=== PATIENT | male | born 1940 | race Caucasian/White ===

== ENCOUNTER 2017-10-12 11:01 | Emergency (ER) | payer MEDICARE ==
[~2017-10-12] VITALS: Ht 182.9 cm; Wt 102.7 kg
[2017-10-12 11:52] LABS: HEMATOCRIT 50.7 % (42.0-52.0); HEMOGLOBIN 17.5 g/dL (13.5-18.0); MEAN CELL VOLUME 90 fl (78-100); MEAN CORPUSCULAR HEMOGLOBIN 31 pg (27-31); MEAN CORPUSCULAR HGB CONC 35 g/dL (33-37); MEAN PLATELET VOLUME 10.4 fl (7.4-10.4); PLATELET COUNT 173 K/mm3 (130-400); RED BLOOD COUNT 5.61 M/mm3 (4.20-5.60); WHITE BLOOD COUNT 14.9 K/mm3 (4.8-10.8)
[2017-10-12 12:13] LABS: LYMPHOCYTE 6 % (20-51); MONOCYTE 1 % (3-10); NEUTROPHILS 93 % (42-75)
[2017-10-12 12:14] LABS: CALCIUM 9.7 mg/dL (8.4-10.2); POTASSIUM 3.7 mmol/L (3.6-5.0); TOTAL BILIRUBIN 1.2 mg/dL (0.2-1.3); TOTAL PROTEIN 7.1 g/dL (6.3-8.2)
[2017-10-12 14:28] LABS: URINE APPEARANCE CLEAR; URINE COLOR YELLOW; URINE GLUCOSE NEGATIVE (NEGATIVE); URINE KETONE 2+ (NEGATIVE); URINE PROTEIN(semi-quant) 1+ mg/dL (NEGATIVE)
[2017-10-12 14:29] LABS: URINE BILIRUBIN NEGATIVE (NEGATIVE); URINE BLOOD 50 ery/uL (NEGATIVE); URINE LEUKOCYTE ESTERASE NEGATIVE (NEGATIVE); URINE NITRATE NEGATIVE (NEGATIVE); URINE UROBILINOGEN NORMAL (NORMAL); URINE WBC 0-1 /hpf (0-3)
[2017-10-12 14:30] LABS: URINE MUCUS PRESENT (NOT PRESENT)
[2017-10-12] MEDS ORDERED: HYDROCHLOROTH12.5 M2 PO (15:14)
[2017-10-12] MEDS ORDERED: LISINOPRIL20 MG PO (15:14)
[2017-10-12] MEDS ORDERED: CALAN120 MG PO (15:15)
[2017-10-12] MEDS ORDERED: ZOFRAN ODT8 M1 PO (17:39)
[2017-10-12 18:22] VITALS: BP 169/77
== END 2017-10-12 18:05 | disposition home or self-care (01) ==
LOC: ED 11:01
PROVIDERS: Physician Assistant
DX: K52.9 Noninfective gastroenteritis and colitis, unspecified (principal); Z88.5 Allergy status to narcotic agent; Z88.0 Allergy status to penicillin; I10 Essential (primary) hypertension; Z86.73 Personal history of transient ischemic attack (TIA), and cerebral infarction without residual deficits
CPT/HCPCS: J2550; J7030; Q9967

== ENCOUNTER 2017-10-15 16:48 | Emergency (ER) | payer MEDICARE ==
[~2017-10-15 16:48] MED LIST: CALAN120 MG PO; HYDROCHLOROTH12.5 M2 PO; LISINOPRIL20 MG PO; ZOFRAN ODT8 M1 PO
[2017-10-15 18:32] LABS: HEMATOCRIT 51.6 % (42.0-52.0); MEAN CELL VOLUME 89 fl (78-100); MEAN CORPUSCULAR HEMOGLOBIN 31 pg (27-31); MEAN CORPUSCULAR HGB CONC 35 g/dL (33-37); MEAN PLATELET VOLUME 10.4 fl (7.4-10.4); PLATELET COUNT 199 K/mm3 (130-400); RED BLOOD COUNT 5.83 M/mm3 (4.20-5.60); RED CELL DISTRIBUTION WIDTH 12.6 % (11.5-14.5)
[2017-10-15 18:58] LABS: ALBUMIN 3.8 g/dL (3.5-5.0); BUN/CREATININE RATIO 25.3 (6.0-26.0); CALCIUM 9.2 mg/dL (8.4-10.2); POTASSIUM 3.4 mmol/L (3.6-5.0); TOTAL BILIRUBIN 1.5 mg/dL (0.2-1.3); TOTAL PROTEIN 6.9 g/dL (6.3-8.2)
[2017-10-15 19:04] LABS: BAND 1 % (0-10); NEUTROPHILS 85 % (42-75)
[2017-10-15 19:05] LABS: LYMPHOCYTE 9 % (20-51); MONOCYTE 5 % (3-10)
[2017-10-15 19:57] VITALS: BP 191/87
[2017-10-15 20:10] LABS: URINE APPEARANCE CLEAR; URINE COLOR DK YELLOW
[2017-10-15 20:11] LABS: URINE BILIRUBIN NEGATIVE (NEGATIVE); URINE BLOOD 50 ery/uL (NEGATIVE); URINE GLUCOSE NEGATIVE (NEGATIVE); URINE KETONE 2+ (NEGATIVE); URINE LEUKOCYTE ESTERASE TRACE (NEGATIVE); URINE NITRATE NEGATIVE (NEGATIVE); URINE PROTEIN(semi-quant) TRACE mg/dL (NEGATIVE); URINE UROBILINOGEN NORMAL (NORMAL)
[2017-10-15 20:19] LABS: URINE WBC 0-1 /hpf (0-3)
[2017-10-15 20:20] LABS: URINE MUCUS PRESENT (NOT PRESENT)
== END 2017-10-15 19:57 | disposition other institution (70) ==
LOC: ED 16:48
PROVIDERS: Family Medicine
DX: K52.9 Noninfective gastroenteritis and colitis, unspecified (principal); E86.9 Volume depletion, unspecified; Z86.73 Personal history of transient ischemic attack (TIA), and cerebral infarction without residual deficits; I10 Essential (primary) hypertension; Z88.5 Allergy status to narcotic agent; Z88.0 Allergy status to penicillin
CPT/HCPCS: J7030

== ENCOUNTER 2017-10-19 15:46 | Inpatient (IN) | payer MEDICARE ==
[~2017-10-19] VITALS: Ht 182.9 cm; Wt 99.5 kg
[~2017-10-19 15:46] MED LIST changes: -CALAN120 MG PO; +CALAN80 M1 PO; +HCTZ 25MG25 MG PO; -HYDROCHLOROTH12.5 M2 PO; -LISINOPRIL20 MG PO; +LISINOPRIL40 MG PO
--- NOTE | 2017-10-21 17:46 | NUR ---
Pt admitted to room 204 for SWB. Arrives via POV from [facility] and taken to room by WC. Speaks without difficulty, short and penitentiary memory recall appear to be intact. Pt denies headache or blurred vision. Pupils PERRLA with brisk response. Denies N/V x 5 days and has been eating solid food for same. LFA reported to have IV infiltrate at previous hospital and noted to be red, warm, edematous, painful to touch and movement with flaky, dry skin. K-pad applied per order. Pt also reports pain to L shoulder that is ongoing for years and he is currently receiving PT for. Reports no BM since 10/15/17 and that he feels as though he may need to have BM soon. Denies difficulty urinating but sometimes has trouble getting stream started. Pt is acclimated to room, given pudding per request, bed alarmed and call light within reach.
[2017-10-21] MEDS ORDERED: NORVASC 10MG10 MG PO (18:04)
[2017-10-21] MEDS ORDERED: VIBRAMYCIN HYC100 MG PO (18:08)
[2017-10-21 18:40] VITALS: BP 165/92
--- NOTE | 2017-10-21 19:00 | NUR ---
Report received from Lesly BARTLETT. Patient resting supine in bed with bed alarm on. K-pad to L arm. A/O x4. Denies pain. Neuro checks WNL. Rn Residential equal bilateral. Able to move self up in the bed independently. Assessement completed. Reinforced use of bed alarm and call light. Denies questions wants or needs.
--- NOTE | 2017-10-21 19:20 | NUR ---
Dr. Guevara in to round on patient.
--- NOTE | 2017-10-22 05:09 | NUR ---
Patient has been resting quietly in bed all night with no signs of pain or distress. K-pad to L arm. Bed alarm on. Call light in reach.
--- NOTE | 2017-10-22 05:26 | NUR ---
Awake, up to BR with assist. Denies pain. States he slept well. ROUTER SETTER states gait unsteady this AM. Scheduled antibiotic taken whole without difficulty. Assisted back to bed with bed alarm on. Call light in reach.
[2017-10-22 06:10] VITALS: BP 128/74
--- NOTE | 2017-10-22 06:23 | NUR ---
Patient became nauseated about 40 Minutes after administration of antibiotic and vomitted up 20 ml of yellow emesis. Denies H/A or dizziness.
--- NOTE | 2017-10-22 07:04 | NUR ---
Report to Wendi BARTLETT.
--- NOTE | 2017-10-22 08:30 | NUR ---
PT UP AND AMBULATING WITH 1:1 ASSIST THIS MORNING, ASSISTED IN THE SHOWER AND DENIES ANY ISSUES WITH THIS TASK, REPORTS FATIGUE BUT STATES THIS IS "NORMAL" LATELY SINCE HIS INJURY, SON AT BEDSIDE UPON GETTING OUT OF SHOWER, PRIOR TO SHOWER PT HAD A BM AND STATES HE FEELS HIS BOWELS ARE MOVING APPROPRIATELY AND HE IS PASSING GAS, BOWEL SOUNDS PRESENT, SITE TO LEFT FA IS SLIGHTLY RED AND WARM BUT NOT ELEVATED, PT DENIES ANY NEW ACUTE CHANGES OR PAINS, DENIES ANY FURTHER REQUESTS, DOES ASK IF HE CAN HAVE CHIPS AND QUESO BUT IS EDUCATED THAT THIS DOES NOT GO ALONG WITH HIS LOW SODIUM DIET ORDERED, EDUCATED ON MORE APPROPRIATE SNACK OPTIONS AT THIS TIME, COMPLEX ASSESSMENT COMPLETED AND CHARTED, PT IN BED WITH CALL LIGHT WITHIN REACH AND BED ALARM ON UPON EXITING ROOM
--- NOTE | 2017-10-22 09:45 | NUR ---
DISCUSSED PT'S REQUEST WITH TO DC THE DOXYCYCLINE PRESCRIBED FOR HIS IV INFLITRATION SITE DUE TO IT CAUSING GI UPSET
[2017-10-22 12:06] VITALS: BP 119/72
--- NOTE | 2017-10-22 14:12 | NUR ---
AT PATIENTS BEDSIDE, ASSESSES LEFT ARM, STATES HE IS GOING TO DC THE DOXYCYCLINE PO MEDICATION DUE TO PATIENT REQUEST, HE STATES IT IS CAUSING EXTREME NAUSEA, ORDERS THAT HE WILL DC THE MEDICATION BUT PT MUST REMAIN USING THE HEATING PAD TO THAT ARM UNTIL ARM IS HEALED
--- NOTE | 2017-10-22 15:20 | NUR ---
PT REQUESTS CHIPS AND QUESO TONIGHT DURING A FOOTBALL GAME WITH HIS FAMILY, ORDERS PT MAY HAVE CHIPS AND QUESO WITH ICE CHIPS THIS EVENING ALTHOUGH HE IS ON A LOW SODIUM DIET, WE ARE TO NOTIFY PHYSICIAN OF SBP>160, PT NOTIFIED
--- NOTE | 2017-10-22 18:31 | NUR ---
PT'S O2 SATURATION BETWEEN 88%-90% AFTER MULTIPLE DEEP BREATHS AND I.S USE, UNABLE TO GET O2 ABOVE 90% ON ROOM AIR, PT STATES "I JUST HAVE A STUFFY NOSE," ORDERS TO USE I.S, ADMINISTER NASAL SPRAY PRN, AND PUT PT ON 1-2L O2 VIA NC UNTIL OXYGEN SATURATIONS APPROVE, PT NOTIFIED OF THESE ORDERS AT THIS TIME
[2017-10-22 18:35] VITALS: BP 133/61
--- NOTE | 2017-10-22 19:33 | NUR ---
Report received from Wendi BARTLETT. Patient resting supine in bed watching TV. A/O x4. Denies pain. Has K-Pad to L arm. Oxygen in place at 2L/NC. Assessment completed. Patient states that he is "not going to wear this all night" refers to oxygen. This nurse explains reason for oxygen and patient states, they tried that down at the other hospital too. "I know its not your fault, but I think its a bunch of bull, and I'm not wearing it all night.". I told him I can't make him where it but have to educate him of the risks of not wearing it. Patient verbalizes understanding. CONVENIENCE RECYCLE CENTER TECH reports he was not too happy with using I.S. either. Denies wants or needs at this time. Bed alarm on. Call light in reach.
[2017-10-22 22:00] VITALS: BP 130/54
--- NOTE | 2017-10-22 22:00 | NUR ---
Rings call light. Vomitted 50 ML of emesis with partial food particles. Denies H/A, dizziness, blurred vision. Neuro checks WNL. Vital signs obtained. B/P 130/54 P 84 R 20 T 98.4 SAO2 87% on RA. Patient had taken oxygen out of nose. O2 replaced and oxygen saturartion 89-90% on 2L/NC. Dr. Guevara notified of patient emesis. Patient educated on oxygen saturations dropping to 87% and need to keep oxygen in place. Oxygen turned up to 2.5L/NC. Saturation increases to 93-95%. Dentures removed and soaked. Mouth rinsed with mouth wash. Wash rag provided to clean face. Clean gown provided. Patient states he thinks he ate too much food. "it tastes good, but I ate too much". Is also requesting honey nut cheerio's for breakfast. "thats all I ever eat at home" I stated will see if Kitchen can provide that or suggested may have to bring in for him. Nasal spray administered. I.S. not done at this time due to vomiting. Rests supine with HOB elevated. Denies wants or needs. Bed alarm on. Call light in reach.
--- NOTE | 2017-10-22 23:00 | NUR ---
Up to BR to void with SBA. Brushes teeth. Assisted back to bed. Bed alarm on. Call light in reach. SCD's applied. K-pad applied to L arm. Patient leaving oxygen on at this time. Humidifier was added. Continues to state he doesn't like it and dosen't know how long he will leave it on.
--- NOTE | 2017-10-23 01:03 | NUR ---
Rests with eyes closed. No signs of distress. Oxygen in place at 2.5L/NC. Bed alarm on. Call light in reach.
--- NOTE | 2017-10-23 03:50 | NUR ---
Rings call light. Requests SCD's be removed at this time. Removed per request. Continues to wear O2 at 2.5 L/NC. Denies pain or nausea. Bed alarm on. Call light in reach.
--- NOTE | 2017-10-23 05:44 | NUR ---
Awaken for V/S and nasal spray. Denies pain. SAO2 94% on 2.5 L/NC. Left oxygen in all night. Denies need to use bathroom. No nausea. Neuro checks WNL. SCD's remain off per request. Instructed to pump legs periodically. Uses. I.S. and pulls 2500 ML x10 reps. Bed alarm on. Call light in reach.
[2017-10-23 06:02] VITALS: BP 117/69
--- NOTE | 2017-10-23 07:20 | NUR ---
Report to Lesly BARTLETT.
--- NOTE | 2017-10-23 08:00 | NUR ---
Assist pt from BR to recliner. Pt voiced displeasure with continuous O2. While assessing pt and administering meds, wean down O2 to RA. Pt retains 93-94% RA and NC removed. Pt is given breakfast tray and states that he eats "honeynut cheerios" every morning and has for the last 30 years. Eats only apple muffin from tray. When asked about episodes of vomit over the last 2 days, pt reports that he has eaten too much and does not plan to eat lunch or dinner today. Inform pt that he needs nutrition for healing and needs to try to eat something from each tray.
[2017-10-23 13:00] VITALS: BP 105/60
--- NOTE | 2017-10-23 13:44 | NUR ---
Pt and son at bedside. Report to nurses station asking "so what's really wrong with him? Nobody has told us anything." Niki Morgan, RN informs that therapies will assess pt tomorrow and a more definative plan will be formulated at that time. Both are concerned about pt speech and ask why he fell in the first place. Son states that he will just talk to Monse, PT, to "find out what's going on."
[2017-10-23 18:39] VITALS: BP 129/65
--- NOTE | 2017-10-23 20:10 | NUR ---
PATIENT LAYING SUPINE IN BED WATCHING THE FOOTBALL GAME. SHIFT ASSESSMENT COMPLETED AT THIS TIME. PATIENT A/O, DENIES PAIN. SPEECH UNCLEAR AT TIMES, PREVIOUS NURSE EXPLAINED THAT FAMILY SAID IT STILL WASN'T BACK TO PATIENT'S BASELINE. LUNGS CTA, DENIES SHORTNESS OF BREATH OR COUGH. PATIENT REPORTS THAT HE WILL NOT WEAR THE SCD'S TONIGHT, STATING "THEY KEEP ME AWAKE." LEFT ARM REDDENED, EDEMATOUS, AND WARM, PATIENT REPORTS IT IS A LOT BETTER THAN WHEN HE WAS IN THE OTHER HOSPITAL, DENIES ANY PAIN IN THE EXTREMETY, K-PAD IN USE FOR COMFORT. THIS NURSE TO DISCUSS WITH PATIENT THE USE OF SUPPLEMENTAL O2 DURING THE NIGHT, PATIENT WAS NOT AGREEABLE STATING "I DON'T LIKE THAT THING ON MY FACE AND IT MAKES MY NOSE DRY." THIS NURSE TO EXPLAIN TO PATIENT THE NEED OF O2 AND THE USE OF THE NASAL SPRAY AND HUMIDIFIER TO HELP WITH THE DRYNESS. THIS NURSE TO CONTINUE TO MONITOR O2 LEVELS AND PATIENT AGREEABLE TO THIS. PATIENT WITHOUT NEEDS AT THIS TIME. CALL LIGHT WITHIN REACH AND BED ALARM ON.
--- NOTE | 2017-10-24 04:53 | NUR ---
TREATMENT TECHNICIAN TO REPORT THIS MORNINGS VITALS WITH AN O2 SAT OF 89%, 2L O2 ADMINISTER VIA NASAL CANNULA AT THIS TIME. WILL CONTINUE TO MONITOR.
[2017-10-24 05:48] VITALS: BP 121/66
--- NOTE | 2017-10-24 09:02 | NUR ---
Graeme Thompson PA-C at bedside.
[2017-10-24 12:55] VITALS: BP 127/64
[2017-10-24 19:21] VITALS: BP 120/59
--- NOTE | 2017-10-24 19:40 | NUR ---
Report received from Perla BARTLETT. Patient resting supine in bed with bed alarm on. Call light in reach. A/O x4. Speech a little easier to understand then previous shift this nurse worked but still garbled at times. Denies pain. Refuses nasal spray. States he may take it at 10 PM. Assessment completed. Hasher Machine Operator equal. Denies wants or needs. Bed alarm on. Call light in reach.
--- NOTE | 2017-10-24 21:49 | NUR ---
Patient refusing SCD's.
--- NOTE | 2017-10-24 22:30 | NUR ---
Up to BR with SBA from FOOD SERVICE ORDER CLERK. Brushes teeth and uses mouth wash. Takes nasal spray at this time. Assisted back to bed. Bed alarm on. Call light in reach.
--- NOTE | 2017-10-25 05:35 | NUR ---
Rested well all night. Denies pain or needs this AM. Refuses nasal spray.
[2017-10-25 06:24] VITALS: BP 125/62
[2017-10-25 11:45] VITALS: BP 133/54
--- NOTE | 2017-10-25 17:25 | NUR ---
Patient alert and oriented. Sitting up in chair. Visitor present. Patient reports pain to lower back, states "it's really bad." Patient states "it's fine while I'm sitting here but when I move it's a 10/10." Describes pain as sharp. Patient states that he has had this type of pain a couple times at home prior to hospitalization. Patient states that he usually takes excedrin regularly at home. Graeme Garcia PA-C notified of patients c/o sharp low back pain. New orders obtained. PRN tylenol and flexeril administered. Orders for PRN norco also obtained. Patient was worried about taking the norco after the visitor present in room told him that it would upset his stomach. Education provided. Patient verbalizes understanding and denies questions or needs at this time. Fall precautions in place.
--- NOTE | 2017-10-25 18:20 | NUR ---
TUBE BUILDER reports patient's oxygen saturation is 83% on room air. TUBE BUILDER states that patient refused to let her apply oxygen. Entered patient room to recheck oxygen saturation. Patient is resting supine in bed with head of bed elevated 30 degrees. Oxygen saturation 83-89% on room air. Patient refuses oxygen, states that it dries out his nares. Offered PRN saline nasal spray. Aquaphor ointment applied to nares. Education provided on the need for oxygen. Patient verbalizes understanding, reluctantly agrees to using oxygen. Oxygen saturation 91% on 3 liters via nasal cannula. Patient reports that pain has not improved at all since taking PRN tylenol and flexeril. Reports sharp pain to mid lower back with deep breaths, states "it hurts really bad." Also reports difficulty breathing. Facial grimace noted with minimal movement. Respirations are regular and non labored. Patient denies needs or questions. Fall precautions in place.
[2017-10-25 18:23] VITALS: BP 146/72
--- NOTE | 2017-10-25 19:05 | NUR ---
Graeme Vale APRN notified of patient's change in condition, sharp mid/lower back pain with deep breaths, c/o difficulty breathing, and decreased oxygen saturation. Graeme Vale APRN also notified of patient's symptoms that were reported by Coco during afternoon physical therapy session.
--- NOTE | 2017-10-25 19:16 | NUR ---
Graeme Vale, HELIO at bedside. Patient is unable to sit up in bed or lean forward due to pain. Assistance required for bed mobility. Facial grimace noted with rolling from side to side. Patients states "it hurts really bad when I try to breathe."
[2017-10-25 19:31] VITALS: BP 119/58
--- NOTE | 2017-10-25 19:41 | NUR ---
Patient to radiology department via wheelchair. Oxygen at 3 liters via nasal cannula.
--- NOTE | 2017-10-25 19:42 | NUR ---
Report given to Eber Mcnally RN and care transferred at this time.
--- NOTE | 2017-10-25 21:00 | NUR ---
2044 One person assist with ambulation to the bathroom, gait belt on, event security officer socks on. Walker used. Ruthie NITO reported pt's legs became weak and gave out," while standing in bathroom. Ruthie NITO reported pt did not fall. Ruthie stated she was standing behind pt holding gait belt and assisted pt on to toilet. 2054 Lucio BEAUCHAMP and uRthie BEAUCHAMP both at pt's side, Pt ambulated back to bed. Ruthie stated pt gait was much more steady no weakness in legs noted.
[2017-10-25 21:38] LABS: HEMATOCRIT 41.7 % (42.0-52.0); HEMOGLOBIN 14.5 g/dL (13.5-18.0); MEAN CELL VOLUME 91 fl (78-100); MEAN CORPUSCULAR HEMOGLOBIN 32 pg (27-31); MEAN CORPUSCULAR HGB CONC 35 g/dL (33-37); MEAN PLATELET VOLUME 9.9 fl (7.4-10.4); PLATELET COUNT 204 K/mm3 (130-400); RED BLOOD COUNT 4.57 M/mm3 (4.20-5.60); WHITE BLOOD COUNT 10.4 K/mm3 (4.8-10.8)
[2017-10-25 22:03] LABS: ALBUMIN 2.7 g/dL (3.5-5.0); BUN/CREATININE RATIO 29.7 (6.0-26.0); POTASSIUM 3.6 mmol/L (3.6-5.0); TOTAL BILIRUBIN 0.8 mg/dL (0.2-1.3); TOTAL PROTEIN 5.3 g/dL (6.3-8.2)
[2017-10-25 22:04] LABS: LYMPHOCYTE 16 % (20-51); MONOCYTE 8 % (3-10); NEUTROPHILS 75 % (42-75)
--- NOTE | 2017-10-26 01:00 | NUR ---
Q hourly checks done. Bed alarm set. Oxygen on at 3L/NC. Pt resting in bed, eyes closed, even respirations. Has had K-pad to back
[2017-10-26 05:39] VITALS: BP 112/60
--- NOTE | 2017-10-26 07:20 | NUR ---
Report given to Lesly Bartholomew RN
--- NOTE | 2017-10-26 08:00 | NUR ---
Henny Garcia has been in to see pt and reports pt is in alot of pain and is diaphoretic and requests pain pill. When this nurse enters pt has breakfast in fron of him and appears weak and struggling to poor cheerios into bowl. Asssitance provided and pt reports pain to lower back. "I cant take a deep breath without it stabbing me" PRN pain medication provided and pt is able to eat his breakfast without issue.
[2017-10-26 08:10] LABS: URINE APPEARANCE CLEAR; URINE BILIRUBIN NEGATIVE (NEGATIVE); URINE BLOOD TRACE (NEGATIVE); URINE COLOR YELLOW; URINE GLUCOSE NEGATIVE (NEGATIVE); URINE KETONE NEGATIVE (NEGATIVE); URINE LEUKOCYTE ESTERASE NEGATIVE (NEGATIVE); URINE MUCUS PRESENT (NOT PRESENT); URINE NITRATE NEGATIVE (NEGATIVE); URINE PROTEIN(semi-quant) 1+ mg/dL (NEGATIVE); URINE UROBILINOGEN NORMAL (NORMAL)
--- NOTE | 2017-10-26 08:58 | NUR ---
Pt sitting up in chair. Reports that back pain is decreased, 5/10. Has kpad to lower back. Reports having difficulty taking deep breath and that this is painful. Can hear movement throughout all lobes. Pt reports that he is feeling better since eating breakfast. Is able to answer all questions appropriately. States that he did not sleep well and that he does not function well without adequate sleep. Pt is diaphoretic and clothing moist to touch.
--- NOTE | 2017-10-26 10:09 | NUR ---
Dr Winn at pt bedside
--- NOTE | 2017-10-26 13:51 | NUR ---
Pt A&O, reports that pain is "much better" than this morning. Denies need for pain Rx at this time. States that Coco, PT, is coming to ambulate with him and he will reassess the need after ambulation.
[2017-10-26 18:03] VITALS: BP 116/72
--- NOTE | 2017-10-26 19:35 | NUR ---
Report received from Lesly Bartholomew RN
--- NOTE | 2017-10-26 21:33 | NUR ---
Resting in bed, bed alarm set. Pt has K-pad to his back. C/o's of having back pain, rates pain 6-7 out of 10. Sa02 96% on 3L/NC. Pulse 89, respirations 24.
--- NOTE | 2017-10-26 21:46 | NUR ---
Given Finley 5mg PO for pain. Given gram crackers for evening snack. Tolerated breathing treatment without difficulty.
--- NOTE | 2017-10-27 05:00 | NUR ---
Q hourly checks done. Bed alarm set. Resting in bed with eyes closed and even respirations. Opens eyes when spoken too. Denied need for pain medication at this time. Pt has repositioned self in bed.
[2017-10-27 06:47] VITALS: BP 117/60
--- NOTE | 2017-10-27 07:15 | NUR ---
Report given to Sara Storey RN
[2017-10-27 12:57] VITALS: BP 105/54
--- NOTE | 2017-10-27 15:00 | NUR ---
PATIENT UP TO BATHROOM. VOIDED CLEAR DARK YELLOW/ORANGE URINE. HAD MEDIUM HARD BOWEL MOVEMENT. NOTED THAT THERE WAS A COUPLE DROPS OF BRIGHT RED BLOOD PRESENT IN TOILET. PATIENT REPORTS THAT STOOL WAS VERY HARD. PATIENT HAD REFUSED STOOL SOFTENERS EARLIER IN THE DAY WHEN OFFERED BUT WANTED TO TAKE THEM AT BEDTIME BUT AFTER HAVING BOWEL MOVEMENT REPORTED HE DIDN'T NEED ANYTHING. PATIENT ENCOURAGED TO TAKE STOOL SOFTENER TONIGHT AND USE ALOE WIPES WHEN WIPING INSTEAD OF TOILET PAPER SO THAT HIS STOOLS WOULDN'T BE SO HARD AND DIFFICULT PASS. PATIENT AGREEABLE.
[2017-10-27 17:40] VITALS: BP 126/67
--- NOTE | 2017-10-27 19:45 | NUR ---
REPORT RECEIVED FROM DHRUV KUO AND BEDSIDE ROUNDING DONE. PT DENIES ANY NEEDS AT THIS TIME.
--- NOTE | 2017-10-28 01:31 | NUR ---
REPORT GIVEN TO DHRUV LIMON AND CARE TRANSFERED.
--- NOTE | 2017-10-28 01:35 | NUR ---
Resting in bed, bed alarm set. Pt head of bed elevated. Pt awake and a/o x 3. lying supine, resting on K-pad. Denies having any pain or SOB. Stated "I don't know why, I just can't sleep." Offered turn tv on for pt. Pt given TV channel guide. Pt requested emesis basen. I asked pt if he was nauseated. Pt stated "no but I feel I could be." Offered to get pt medication for nausea. Pt stated I'm not nauseated but I'd like to have it near just in case."
--- NOTE | 2017-10-28 02:30 | NUR ---
Continues to rest in bed awake and a/o x 3. Bed alarm set. Denies having any needs. Denies pain or nausea.
--- NOTE | 2017-10-28 05:24 | NUR ---
Q hourly checks done. Bed alarm set. Has been resting in bed, awake watching tv. Pt denies having any pain or nausea. Stated "I had a little nausea but it went away." "I just haven't been able to sleep. I don't know why."
[2017-10-28 06:13] VITALS: BP 125/70
--- NOTE | 2017-10-28 07:15 | NUR ---
Report given to Sara Storey RN
--- NOTE | 2017-10-28 08:30 | NUR ---
PATIENT'S SHIFT ASSESSMENT COMPLETE. PATIENT ALERT AND ORIENTED X4. DENIES ANY PAIN OR DISCOMFORTS AT THIS TIME. REPORTS FEELING REALLY GOOD TODAY AND THAT HE FEELS BETTER THAN HE HAS BEEN. DID REQUEST SOMETHING TO HELP HIM SLEEP TONIGHT. REPORTS THAT HE HAS ONLY BEEN GETTING ABOUT 3 HOURS OF SLEEP FOR THE PAST COUPLE OF NIGHTS. ON OXYGEN VIA NASAL CANNULA AT 3L. CALL LIGHT WITHIN REACH. CHAIR ALARM ON.
[2017-10-28 12:00] VITALS: BP 132/72
[2017-10-28 18:00] VITALS: BP 130/82
--- NOTE | 2017-10-28 20:05 | NUR ---
PATIENT LAYING SUPINE IN BED WATCHING TV. SHIFT ASSESSMENT COMPLETED AT THIS TIME. PATIENT A/O X4, DENIES PAIN. LUNGS DIMINISHED THROUGHOUT, DENIES SHORTNESS OF BREATH OR COUGH. 3L O2 FLOWING THROUGH NASAL CANNULA WITH HUMIDIFIER. +1 PITTING EDEMA NOTED IN BLE. 20 G IV IN RIGHT WRIST FLUSHED AND WITH NO BLOOD RETURN, DRESING CDI. HS MEDS GIVEN. BREATHIN TX STARTED, PATIENT INSTRUCTED TO CALL WHEN COMPLETE. PRN SENNA AND TRAZADONE GIVEN FOR HARD STOOLS AND PATIENT'S REPORTS OF LACK OF SLEEP LAST COUPLE OF NIGHTS. PATIENT WITH NO FURTHER NEEDS AT THIS TIME, WILL CONTINUE TO MONITOR. CALL LIGHT WITHIN REACH AND BED ALARM ON.
[2017-10-29 00:05] VITALS: BP 131/71
--- NOTE | 2017-10-29 00:40 | NUR ---
Report received from Wanda BARTLETT. Patient up to BR with assist of EDGE BANDER OPERATOR. EDGE BANDER OPERATOR reports that patient vomitted approximatly 300 ML of yellow colored emesis with undigested food particles. Patient states he ate too much and that salsa did not agree with him. Resting in bed when this nurse enters room. Denies pain. Denies H/A, blurred vision. VSS.
--- NOTE | 2017-10-29 02:32 | NUR ---
Resting with eyes closed. No signs of distress. No further emesis at this time.
--- NOTE | 2017-10-29 06:40 | NUR ---
Rested well all shift. Denied pain. No further emesis this shift.
--- NOTE | 2017-10-29 07:20 | NUR ---
REPORT RECEIVED FROM NAZARIO LEON LPN
--- NOTE | 2017-10-29 08:00 | NUR ---
PATIENT SITTING UP IN RECLINER. SHIFT ASSESSMENT COMPLETE. PATIENT ALERT AND ORIENTED X4. DENIES ANY PAIN OR DISCOMFORTS AT THIS TIME. PATIENT DENIES ANY SHORTNESS OF BREATH OR DIFFICULTIES BREATHING. REPORTS THAT LASTNIGHT HE "SLEPT A LOT BETTER" AND THAT HE FEELS PRETTY GOOD TODAY. DID REPORT THAT HE WAS NAUSEATED LAST NIGHT AT BEDTIME AFTER HIS SCHEDULED 2100 BREATHING TREATMENT AND THAT HE VOMITED. REPORTS THAT HE FEELS THOUGH THE NIGHT TIME BREATHING TREATMENT IS MAKING HIM NAUSEOUS. STATES "I DON'T KNOW IF I'M ALLERGIC TO IT OR WHAT BUT I THINK IT'S MAKING ME SICK" REQUESTED THAT THE DOCTOR BE ASKED ABOUT STOPPING HIS 2100 BREATHING TREATMENT. LUNG SOUNDS DIMINISHED. STATES "YESTERDAY WAS THE BEST DAY I HAVE HAD BY FAR" PATIENT'S CALL LIGHT WITHIN REACH. CHAIR ALARM ON.
[2017-10-29 12:00] VITALS: BP 136/60
--- NOTE | 2017-10-29 14:00 | NUR ---
PATIENT'S SP02 96% AFTER BREATHING TREATMENT ON 3L OXYGEN VIA NASAL CANNULA. OXYGEN TURNED DOWN TO 2L AT THIS TIME.
[2017-10-29 18:00] VITALS: BP 128/66
--- NOTE | 2017-10-29 20:52 | NUR ---
PATIENT LAYING SUPINE IN BED WATCHING TV. SHIFT ASSESSMENT COMPLETED AT THIS TIME. PATIENT A/O X4, DENIES PAIN. LUNGS DIMINISHED THROUGHOUT, DENIES COUGH OR SHORTNESS OF BREATH. 2L O2 FLOWING VIA NC. PATIENT REPORTS SLIGHT NAUSEA THIS EVENING. +2 PITTING EDEMA NOTED TO BLE. 20 G IV TO RIGHT WRIST FLUSHED WITH NO BLOOD RETURN, DRESSING CDI. HS MEDICATIONS GIVEN, BREATHING TX HELD PER PATIENT REQUEST AND DOCTOR ORDER TO SEE IF THIS RELIEVES HIS NAUSEA ANY. PATIENT WITH NO FURTHER NEEDS, WILL CONTINUE TO MONITOR. CALL LIGHT WITHIN REACH AND BED ALARM ON.
[2017-10-30 06:02] VITALS: BP 138/74
--- NOTE | 2017-10-30 07:20 | NUR ---
REPORT RECEIVED FROM DHRUV HERNÁNDEZ
--- NOTE | 2017-10-30 08:00 | NUR ---
PATIENT SITTING UP IN RECLINER. SHIFT ASSESSMENT COMPLETE. PATIENT ALERT AND ORIENTED X4. DENIES ANY PAIN OR DISCOMFORTS AT THIS TIME. REPORTS HIS NIGHT WAS "PRETTY GOOD" REPORTS THAT HE SLEPT BETTER LAST NIGHT THAN HE HAS IN AWHILE. WHEN ASKED IF HE EXPERIENCED SHORTNESS OF BREATH REPORTS THAT HE DOES NOT HAVE ANY WHILE AT REST AND WITH EXERTION HE HAS "VERY LITTLE" PATIENT ON OXYGEN VIA NASAL CANNULA AT 2L. HAS +1 EDEMA TO BILAT LOWER EXT. PATIENT REPORTS THAT HE FEELS THOUGH NOT HAVING HIS 2100 DUONEB HELPED HIS NAUSEA. PATIENT'S CALL LIGHT WITHIN REACH. CHAIR ALARM ON.
[2017-10-30 13:05] VITALS: BP 149/72
[2017-10-30 17:55] VITALS: BP 131/82
--- NOTE | 2017-10-30 18:50 | NUR ---
PATIENT HAS BEEN REPORTING TO SEVERAL DIFFERENT PEOPLE INCLUDING THIS NURSE THAT HE DOES NOT FEEL THOUGH HE HAS PNEUMONIA AND THAT HE WANTS TO STOP HIS BREATHING TREATMENTS AT LEAST HIS 2100 DUONEB. THIS NURSE HAS DISCUSSED IN GREAT LENGTHS OVER THE LAST 3 DAYS WITH PATIENT ABOUT THE REASON THAT HE IS GETTING BREATHING TREATMENTS. INFORMED PATIENT THAT HE HAS THE RIGHT TO REFUSE HIS BREATHING TREATMENTS AND THAT THIS NURSE WOULD ASK THE PROVIDER IF THEY THOUGHT IT WAS APPROPRIATE FOR PATIENT TO STOP GETTING BREATHING TREATMENTS AT THIS TIME. EVERY TIME THIS NURSE HAS OFFERED HE STATES IT'S NOT NECESSARY IF THEY THINK THEY ARE NEEDED I WILL KEEP DOING THEM BUT HE WOULD LIKE FOR THEM TO STOP HIS 2100 DUONEB. PATIENT'S REQUESTED THAT A PROVIDER SHOW HIM HIS CHEST CT. Henny SCHULZ APRN NOTIFIED OF PATIENT'S REQUEST TO STOP BREATHING TREATMENTS. ORDER RECEIVED TO DISCONTINUE 2100 DUONEB. PATIENT NOTIFIED OF CHANGES.
--- NOTE | 2017-10-30 19:20 | NUR ---
REPORT GIVEN TO DHRUV LIMON
--- NOTE | 2017-10-30 19:20 | NUR ---
Report received from Sara Storey RN. Pt awake and a/o x 3. Sitting up in recliner. Right and left ankle 1 plus edema. Pt encouraged to elevated lower legs. Denies having any pain, Denies SOB. Denies having any nausea. Offered pt evening snack, pt declined.
--- NOTE | 2017-10-30 22:10 | NUR ---
Report given to Eula Storey RN
--- NOTE | 2017-10-30 23:03 | NUR ---
Report received from Shaquille BARTLETT. Patient resting in bed watching ball game. A/O x4. Oxygen in place at 2L/NC. Denies pain or needs. Bed alarm on. Call light in reach.
[2017-10-31 06:00] VITALS: BP 118/67
--- NOTE | 2017-10-31 06:19 | NUR ---
Rested well all night. No distress. Oxygen in place per N/C at 2L. Up with assist to BR PRN. Bed alarm on. Call light in reach.
--- NOTE | 2017-10-31 07:09 | NUR ---
Report to Wendi BARTLETT.
[2017-10-31 12:55] VITALS: BP 129/71
--- NOTE | 2017-10-31 14:00 | NUR ---
CALL FROM NEUROSURGERY OFFICE AT THIS TIME CONFIRMING NEW FOLLOW UP APPOINTMENT TIME REGARDING CEREBRAL HEMORRHAGE, NEW APPT TIME IS SCHEDULED FOR 11/21/17, CT SCAN @ 0915 APPOINTMENT FOLLOWING @ 8775, WILL NOTIFY PATIENTS OF NEW APPOINTMENT TIME, 'S NURSE STATES THAT PT IS TO REGISTER AT [facility] IN THE AM FOR CT SCAN, ALSO STATES THAT THEY WANT THE CT SCAN TO BE DONE AT [facility], NOT [facility], IN ORDER TO ENSURE THE IMAGES WERE TAKEN USING THE SAME MACHINE, NO FURTHER ORDERS OR QUESTIONS AT THIS TIME
--- NOTE | 2017-10-31 15:05 | NUR ---
NYDIA WITH PT STATES THAT PT WAS SLIGHTLY MORE SOB ON TREADMILL TODAY, SHE GOT AN O2 READING LOW 79% BUT FEARS HER MONITOR MAY HAVE BEEN READING WRONG DUE TO PT SATTING NORMAL UPON RETURNING TO ROOM, DURING EPISODE NYDIA INCREASED O2 TO 3L, PT REMAINED ASYMPTOMATIC THROUGHOUT REST OF THERAPY SESSION, VITAL SIGNS STABLE UPON RETURNING TO ROOM, BREATHING STABLE ON 2L O2 VIA NC, AND DENIES ANY FURTHER SOB, WILL CONTINUE TO MONITOR O2 AND SYMPTOMS OF WORSENING SOB
--- NOTE | 2017-10-31 17:20 | NUR ---
LENGTHY DISCUSSION ABOUT PREVIOUS CT RESULTS AT THIS TIME, WRITTEN REPORT READ TO PATIENT AND ANY QUESTIONS APPROPRIATE FOR THIS NURSE TO ANSWER WERE ANSWERED, PT HAS HAD MULTIPLE CONCERNS THAT THE PNEUMONIA LAST WEEK WAS A "FALSE DIAGNOSIS" AND WAS REQUESTING TO SEE THE CT RESULTS, PT ENSURED THAT DUE TO ER/EMERGENCY OBLIGATIONS TODAY'S PROVIDER HAS NOT BEEN ABLE TO MAKE IT INTO HIS ROOM YET TODAY BUT RADHAMES ATNG APRN HAS AGREED TO GO VISIT WITH PATIENT IN FURTHER DETAIL THIS EVENING WHEN SHE GETS TIME, PT IS CONTENT WITH THESE ANSWERS AND APPRECIATIVE OF THE TIME SPENT
[2017-10-31 18:15] VITALS: BP 149/77
--- NOTE | 2017-10-31 18:38 | NUR ---
X4 ATTEMPTS TO CONTACT PT'S TODAY THROUGHOUT SHIFT TO NOTIFY HER OF NEUROSURGERY APPT DATE AND TIME, UNABLE TO REACH TODAY, WILL KEEP TRYING TO REACH HER, PHONE IS NOT SET UP WITH [employer], PASSED THIS INFORMATION ON IN REPORT WELL IN CASE COMES IN ON HS SHIFT
--- NOTE | 2017-10-31 19:40 | NUR ---
Report received from Wendi BARTLETT. Patient sitting up in recliner. A/O x4. Denies pain. Denies shortness of breath or cough. Uses I.S. and pulls 250 ML x10 Reps. Oxygen in place at 2L/NC x10. Assessment completed. Call light in reach. Denies wants or needs at this time.
--- NOTE | 2017-11-01 00:20 | NUR ---
Resting with eyes closed. Oxygen in place at 2L via N/C. No signs of distress. Bed alarm on. Call light in reach.
[2017-11-01 05:45] VITALS: BP 114/64
--- NOTE | 2017-11-01 06:16 | NUR ---
Rested well all night with no verbalization of pain or distress. Oxygen on at 2L/NC. Bed alarm on. Call light in reach.
--- NOTE | 2017-11-01 07:03 | NUR ---
Report to Wendi BARTLETT.
[2017-11-01 11:58] VITALS: BP 109/53
--- NOTE | 2017-11-01 12:04 | NUR ---
PT'S NOTIFIED FACE TO FACE AT THIS TIME OF UPCOMING APPOINTMENT WITH NEUROSURGERY AND CT SCAN SCHEDULED IN [place] ON 11/21/17 (SEE NOTES FROM YESTERDAY), HAS NO FURTHER QUESTIONS AT THIS TIME
--- NOTE | 2017-11-01 16:37 | NUR ---
PER PT REQUEST DUE TO NAUSEA AND "HATING THE TASTE" OF SCHEDULED [place] TX'S, PATRICIA ORDERS TO MAKE BREATHING TX'S PRN AT THIS TIME
[2017-11-01 18:00] VITALS: BP 126/65
--- NOTE | 2017-11-01 20:30 | NUR ---
Report received from Perla BARTLETT. Patient resting supine in bed watching [employer] game. A/O x4. Oxygen in place at 2L/NC. Denies pain. Denies shortness of breath or cough. Assessment completed. Scheduled HS medications and PRN stool softner taken per requests. Takes PO antibiotic with Vanilla Pudding. Denies further wants or needs at this time. Bed alarm on. Call light in reach.
--- NOTE | 2017-11-01 21:30 | NUR ---
Patient vomitted up 300 ML of emesis. States "I need to quit eating tongan food, it doesn't agree with me". Denies further nausea after emesis. States "if I could have my Tums at the table and take when I feel it coming on, I would't vomit". Wet wash rag provided. Mouth rinsed with water and mouth wash. Refused SCD's for the night.
--- NOTE | 2017-11-02 04:56 | NUR ---
Feeling "a little nauseated" this morning. Requests and given Tums. States he didn't know if he could have any more or he would of asked for some in the night. Order reviwed with him. Verbalizes understanding. ADULT LITERACY INSTRUCTOR in to get AM vital signs. Denies further needs. No further emesis this shift.
[2017-11-02 06:16] VITALS: BP 114/66
--- NOTE | 2017-11-02 07:30 | NUR ---
Report to Lesly BARTLETT.
--- NOTE | 2017-11-02 08:00 | NUR ---
Pt A&O. Requests tums prior to breakfast for nauseated feeling. Reports having to take tums regularly at home for nausea.
[2017-11-02 11:12] VITALS: BP 123/65
--- NOTE | 2017-11-02 14:29 | NUR ---
Pt reports feeling nauseated after PT. Talk to provider about ongoing bouts of nausea. Protonix ordered and given at this time. Within minutes of taking protonix, pt vomits 100ml. Unable to witness protonix within emesis.
--- NOTE | 2017-11-02 14:33 | NUR ---
While ambulating in parr with PT, O2 sats remain >90% on 2L. Once seated in room, a recheck of sats show 93% on 2L O2 via NC.
--- NOTE | 2017-11-02 17:25 | NUR ---
Recheck pt, reports no nausea at this time. Was able to eat dinner.
[2017-11-02 18:00] VITALS: BP 109/69
--- NOTE | 2017-11-02 19:15 | NUR ---
Report received from Lesly Bartholomew RN
--- NOTE | 2017-11-02 19:40 | NUR ---
Resting in bed, bed alarm set. Pt awake and a/o x 3. Sitting up in bed, eating vanilla pudding. Pt denied having nausea at this time.
--- NOTE | 2017-11-02 22:12 | NUR ---
2200 Pt turned trust evaluation supervisor light. Pt noted to be sitting up in bed. Head of bed elevated. Cool wash cloth to forehead. Noted to be vomiting undigested stomach content. Pt stated nausea and vomiting came on at 2151. Pt states the nause and vomiting usually comes on after he has drank, ate or taken medication. Order received for zofran 4mg ODT. Pt stated his back of his neck was starting to hurt from sitting up.
--- NOTE | 2017-11-02 22:17 | NUR ---
Danii Saleh APRN notified of Pt informing me that he becomes nauseated and vomits after eating, drinking or taking medication.
--- NOTE | 2017-11-02 22:20 | NUR ---
221 Pt given flexeril for c/o of pain and soreness in posterior neck. 2220 Ambulated to the bathroom with use of walker, gait belt and special education educational assistant socks on. Myself at pt's side. Pt's urine color dark yellow. Once back into bed, bed alarm set. Pt encouraged to lay on left side. K-pad to abd for comfort. Pt denies nausea or pain in stomach. Head of bed elevated slightly. Oxygen continues to be at 2L/NC. Humdifier bottle changed out.
--- NOTE | 2017-11-02 22:45 | NUR ---
Pt stated he had a bowel movement this morning.
--- NOTE | 2017-11-03 05:00 | NUR ---
Q hourly checks done. Bed alarm set. Eyes closed even respirations.
--- NOTE | 2017-11-03 06:17 | NUR ---
Currently awake resting in bed, bed alarm set. Denies nausea, SOB, pain of any kind. Given protonix with a small sipp of water. Up ambulating to bathroom, using gait belt, slot host socks and Marcelo DIRECTOR OF VITAL STATISTICS at pt's side. Gait steady.
[2017-11-03 06:31] VITALS: BP 113/65
--- NOTE | 2017-11-03 07:15 | NUR ---
Report given to Phyllis MEMBRENO on pt's condition.
--- NOTE | 2017-11-03 07:20 | NUR ---
Report given to Lesly Bartholomew RN
[2017-11-03 12:05] LABS: ALBUMIN 3.8 g/dL (3.5-5.0); BUN/CREATININE RATIO 18.7 (6.0-26.0); TOTAL BILIRUBIN 1.1 mg/dL (0.2-1.3); TOTAL PROTEIN 7.3 g/dL (6.3-8.2)
[2017-11-03 12:55] VITALS: BP 128/67
[2017-11-03 13:27] LABS: HEMATOCRIT 51.2 % (42.0-52.0); HEMOGLOBIN 16.8 g/dL (13.5-18.0); MEAN CELL VOLUME 92 fl (78-100); MEAN CORPUSCULAR HEMOGLOBIN 30 pg (27-31); MEAN CORPUSCULAR HGB CONC 33 g/dL (33-37); MEAN PLATELET VOLUME 11.5 fl (7.4-10.4); PLATELET COUNT 163 K/mm3 (130-400); RED BLOOD COUNT 5.54 M/mm3 (4.20-5.60); RED CELL DISTRIBUTION WIDTH 13.1 % (11.5-14.5); WHITE BLOOD COUNT 7.6 K/mm3 (4.8-10.8)
[2017-11-03 13:47] LABS: LYMPHOCYTE 9 % (20-51); MONOCYTE 10 % (3-10); NEUTROPHILS 80 % (42-75)
[2017-11-03 14:32] LABS: URINE APPEARANCE HAZY; URINE COLOR YELLOW
[2017-11-03 14:33] LABS: URINE BILIRUBIN NEGATIVE (NEGATIVE); URINE BLOOD NEGATIVE (NEGATIVE); URINE GLUCOSE NEGATIVE (NEGATIVE); URINE KETONE NEGATIVE (NEGATIVE); URINE LEUKOCYTE ESTERASE TRACE (NEGATIVE); URINE NITRATE NEGATIVE (NEGATIVE); URINE PROTEIN(semi-quant) TRACE mg/dL (NEGATIVE); URINE UROBILINOGEN NORMAL (NORMAL)
--- NOTE | 2017-11-03 14:33 | NUR ---
Pt reports that he is feeling better than he did this AM. Reports no nausea today. Reports being cold today, attributes this to colder temperatures outside. Also states that he is more weak today than yesterday.
[2017-11-03 14:34] LABS: URINE MUCUS PRESENT (NOT PRESENT)
[2017-11-03 18:12] VITALS: BP 102/49
--- NOTE | 2017-11-03 20:35 | NUR ---
PATIENT RESTING SUPINE IN BED VISITING WITH FAMILY. SHIFT ASSESSMENT COMPLETED AT THIS TIME. PATIENT A\O X4, DENIES PAIN. LUNGS CTA, DENIES SHORTNESS OF BREATH, REPORTS NON-PRODUCTIVE COUGH. PATIENT ON 2L O2 WITH HUMIDIFIER. +2 PITTING EDEMA NOTED IN BLE. PATIENT REPORTS NO NAUSEA AT THIS TIME. HS MEDICATIONS GIVEN WITH PUDDING. PATIENT WITH NO FURTHER NEEDS AT THIS TIME, WILL CONTINUE TO MONITOR. CALL LIGHT WITHIN REACH AND BED ALARM ON.
--- NOTE | 2017-11-04 00:05 | NUR ---
WELCOME WAGON HOST/HOSTESS TO REPORT O2 SATURATION IN THE UPPER 80'S ON 2L O2. OXYGEN INCREASED TO 3L AT THIS TIME, WILL CONTINUE TO MONITOR.
[2017-11-04 00:06] VITALS: BP 103/59
--- NOTE | 2017-11-04 01:50 | NUR ---
HEALTH TECHNICIAN HEARING TO RECHECK PATIENT'S O2 SATURATION, CURRENTLY AT 92% ON 3L O2. WILL CONTINUE TO MONITOR.
[2017-11-04 06:15] VITALS: BP 102/62
--- NOTE | 2017-11-04 07:15 | NUR ---
REPORT FROM EDGAR BARTLETT
--- NOTE | 2017-11-04 08:15 | NUR ---
UP IN CHAIR AT [facility], TAKES CEREAL FOR BREAKFAST
--- NOTE | 2017-11-04 10:44 | NUR ---
currently up in chair at bedside, oxygen remains at 2-3l/nc, alert, orietned but not very talkative, denies request or complaint
[2017-11-04 12:43] VITALS: BP 124/73
--- NOTE | 2017-11-04 13:18 | NUR ---
patient currently sleeps
[2017-11-04 18:19] VITALS: BP 145/70
--- NOTE | 2017-11-04 18:25 | NUR ---
PROCESS CHECKER REPORTS TEMP OF 100.9 ORALLY, TYLENOL 650 MG GIVEN PO, THE PATIENT THEN STATES THAT WONT HELP, THE ONLY THING THAT HELPS IS EXCEDRIN
--- NOTE | 2017-11-04 19:25 | NUR ---
REPORT TO CHIQUITA BARTLETT
--- NOTE | 2017-11-04 19:45 | NUR ---
Resting in bed awake and a/o x 3. Bed alarm set. Oxygen on at 3L/NC. Pt watching TV. Denies having nausea. Denies having any pain. Pt stated "I feel like I might be coming down with a cold. Lung sounds CTA in upper lobes. Lungs sounds diminished in the bases bilaterally.
--- NOTE | 2017-11-04 21:00 | NUR ---
Pt given vanilla pudding to take evening medication and for evening snack.
--- NOTE | 2017-11-05 00:06 | NUR ---
Sa02 91% on 3L/NC.
--- NOTE | 2017-11-05 00:07 | NUR ---
Q hourly checks done. Bed alarm set. Oxygen on at 3L/NC. Pt awake and a/o x 3. C/o of his throat hurting from coughing. Sa02 91%. Pt did incentive spirometer Able to reach 2500mls x 10. Pt did flutter valve x 10. Used proper technique on incentive spirometer and flutter valve. Lung sounds CTA in upper lobes bilaterally. Lung sounds diminished in bases bilaterally. Sa02 increased to 97% when doing incenitive spirometer and flutter valve. Pt has dry cough when doing incentive spirometer and flutter valve.
--- NOTE | 2017-11-05 00:11 | NUR ---
Pt denies having any nausea.
--- NOTE | 2017-11-05 00:17 | NUR ---
Pt tolerated breathing treatment without difficulty denied pain or nausea during breathing treatment. Used incentive spirometer x 10, able to reach 2500mls. Used flutter valve correctly x 10. Sa02 94%-95%. Pt had dry cough while doing breathing treatment, incentive spirometer and flutter valve.
[2017-11-05 03:00] VITALS: BP 96/46
--- NOTE | 2017-11-05 03:00 | NUR ---
PATIENT IS 91% ON 3L/NC, PERFORMES INCENTIVE SPIROMETRY AND FLUTTER VALVE X 10, AFTERWARD SATS 97%
--- NOTE | 2017-11-05 04:11 | NUR ---
Q hourly checks done. Bed alarm set. Oxygen on at 3L/NC. At 0400 pt awake and a/o x 3. Denies nausea, denies headache or SOB. Ambulated to the bathroom, used walker, gait belt and supply chain intern socks on. Rk WIRE BRUSH MAKER at side. Gait steady, able to bearfull weight.
[2017-11-05 06:03] VITALS: BP 121/62
--- NOTE | 2017-11-05 07:50 | NUR ---
PT VERY LETHARGIC POST FLEXERIL ADMINISTRATION DURING HS SHIFT, PT FALLING ASLEEP AND C/O FEELING "GROGGY", PT EDUCATED ON PRN MEDICATION ADMINISTRATION DURING HS SHIFT AND STATES HE REMEMBERS GETTING THIS PILL AND THAT HE HAS BEEN GROGGY SINCE, DR.MINGES CUMMINS AND DC'S MEDICATION, PT DENIES PAIN, REPORTS HE IS ENCOURAGED THAT HE IS NOT "COUGHING UP JUNK" AND THAT HE IS FEELING BETTER WHEN HE GETS THIS UP, PT IS ABLE TO TAKE MEDICATIONS WITHOUT DIFFICULTY WELL EAT BREAKFAST, REFUSES BREAKFAST TRAY BECAUSE HE HAS CHEERIOS AT BEDSIDE AND JUST WANTS TO EAT THOSE, DENIES ANY FURTHER NEEDS OR COMPLAINTS AT THIS TIME, BREATHING STABLE AFTER BEING TITRATED UP TO 3L PER NASAL CANULA, WILL ATTEMPT TO TITRATE O2 BACK DOWN THIS SHIFT, CHAIR ALARM ON UPON EXITING ROOM
[2017-11-05 12:00] VITALS: BP 141/63
--- NOTE | 2017-11-05 13:00 | NUR ---
PT STATES HE IS "MORE AWAKE" BUT STILL A BIT DROWSY, WENT ON A WALK IN THE HALLWAY AND TOLERATED WALK WELL, ATE 50% OF HIS LUNCH, DENIES SOB OR PAIN, REPORTS INTERMITTENT PRODUCTIVE COUGH, DENIES NEED FOR PRN BREATHING TX, PT ALSO AMBULATORY AT THIS TIME WITH 1:1 SBA USING GAIT BELT AND WALKER TO TOILET, URINE KIMMY IN COLOR, PT ENCOURAGED TO DRINK MORE FLUIDS AND HE STATES "DRINKING WATER MAKES ME PUKE," PT AGREES TO GATORADE, DENIES NAUSEA AT THIS TIME, WILL CONTINUE TO MONITOR
--- NOTE | 2017-11-05 15:15 | NUR ---
PT OFFERED AND AGREEABLE TO WALK AT THIS TIME IN [place], PT ABLE TO WALK DOWN TO RADIOLOGY DOOR, TOOK A SHORT BREAK, THEN WALKED BACK TO ROOM USING GAIT BELT AND WALKER WITH 1:1 LIMITED ASSIST, PT A BIT UNSTEADY TURNING AROUND TO SIT DOWN IN CHAIR, ENCOURAGED TO SLOW DOWN AND TAKE IT STEP BY STEP, PT ASSISTED BACK TO ROOM AND INTO HIS RESTROOM, AFTER AMBULATION PT'S O2 WAS STABLE AT 96% BACK ON THE 2L OF O2 VIA NASAL CANULA, PT DENIES SOB, INTERMITTENT COUGH NOTED WITH AMBULATION, STATES HE IS "FEELING STRONGER" THAN HE WAS THIS MORNING, AT THIS TIME WE APPLIED LOTION TO DRY SKIN ON ALL EXTREMITIES, CLEANSED HIS FACE AND EXTREMITIES WITH A WARM WASH CLOTH AND PT THEN INDEPEDENTLY CHANGED INTO A CLEAN PAIR OF UNDERWEAR AND WAS ABLE TO UNDRESS AND REDRESS HIS LOWER HALF INDEPENDENTLY WHILE SITTING ON THE TOILET, PT ALLOWED TIME ON THE TOILET AT THIS TIME AND EDUCATED TO USE CALL LIGHT WHEN FINISHED, DENIES ANY FURTHER NEEDS AT THIS TIME, PT IS FULLY ALERT AND ORIENTED WITH CALL LIGHT WITHIN REACH
--- NOTE | 2017-11-05 15:44 | NUR ---
PT ENCOURAGED TO DRINK MORE FLUIDS, STATES HE DOESN'T LIKE PLAIN WATER TO GATORADE WAS PROVIDED AT THIS TIME PER PT REQUEST, PT SITTING IN BED WITH HOB ELEVATED DRINKING GATORADE AND READING THE PAPER AT THIS TIME, BED ALARM ON AND CALL LIGHT WITHIN REACH
[2017-11-05 18:22] VITALS: BP 101/65
--- NOTE | 2017-11-05 19:10 | NUR ---
Report received from Wendi Valero RN.
--- NOTE | 2017-11-05 20:14 | NUR ---
Pt awake and a/o x 3. Oxygen 2L/NC. Used Sa02 88%. Pt used incentive spirometer able to reach 2500mls x 10. Used flutter valve x 10. Used proper technique. Sa02 increased t0 95%
--- NOTE | 2017-11-05 20:27 | NUR ---
Given evening snack of vanilla pudding. Pt took evening medication with vanilla pudding.
--- NOTE | 2017-11-05 21:00 | NUR ---
Ate 100% of pudding. Ambulated self with use of walker and gait belt and lock plater socks on. Gait steady, able to bearfull weight.
--- NOTE | 2017-11-06 05:59 | NUR ---
Q hourly checks done. Bed alarm set. Pt awake and a/o x 3. Denies pain, denies SOB, denies nausea. Oxygen on at 2L/NC.
[2017-11-06 06:13] VITALS: BP 106/59
--- NOTE | 2017-11-06 07:15 | NUR ---
report from Sri BARTLETT
--- NOTE | 2017-11-06 10:35 | NUR ---
patient is currently up in chair at [facility], he visits with his , denies request or concern, stating he feels better today than last several days, and he felt like he tolerated todays shower better also.oxygen remains at 2l/nc to keep sa02 above 90.
[2017-11-06 12:04] VITALS: BP 104/52
[2017-11-06 17:53] VITALS: BP 135/94
--- NOTE | 2017-11-06 18:33 | NUR ---
zain currently up in chair at [facility]
--- NOTE | 2017-11-06 19:13 | NUR ---
REPORT TO EDGAR BARTLETT
--- NOTE | 2017-11-06 20:05 | NUR ---
PATIENT LAYING SUPINE IN BED WATCHING TV. SHIFT ASSESSMENT COMPLETED AT THIS TIME. PATIENT A/O X4, DENIES PAIN. LUNGS CTA, DENIES SHORTNESS OF BREATH, REPORTS A COUGH WITH THICK, CLEAR PRODUCTION. O2 FLOWING VIA NASAL CANNULA AND HUMIDIFIER @ 2L. +2 PITTING EDEMA NOTED IN BLE. PATIENT DENIES NAUSEA. HS MEDICATIONS GIVEN WITH PUDDING. PATIENT WITHOUT FURTHER NEEDS, WILL CONTINUE TO MONITOR. CALL LIGHT WITHIN REACH AND BED ALARM ON.
[2017-11-07 06:37] VITALS: BP 111/62
--- NOTE | 2017-11-07 08:30 | NUR ---
Decreased O2 to 1L via NC as pt sats have been mid to upper 90's on 2L. Will spot check to monitor sats.
--- NOTE | 2017-11-07 09:30 | NUR ---
Recheck O2 sats. Upon initial check, sats 87% on 1L, pt picks up IS, begins performing breathing exercises, sats increase immediately to 93% on 1L. Pt is noted on previously while relaxing that he breathes shallowly and speech is mumbled until it is brought to pt attention then he is noted to speak more clearly and breathe more effectively.
--- NOTE | 2017-11-07 14:15 | NUR ---
Graeme Garcia PA-C decreased O2 to 0.5L/min. While working with PT, pt sats ranged from 91% at rest to 97% with ambulation.
[2017-11-07 18:27] VITALS: BP 145/61
--- NOTE | 2017-11-07 20:30 | NUR ---
PATIENT LAYING SUPINE IN BED WATCHING THE [employer] GAME. SHIFT ASSESSMENT COMPLETED AT THIS TIME. PATIENT A/O X4, DENIES PAIN. LUNGS CTA, PATIENT REPORTS COUGH WITH THICK, CLEAR PRODUCTION, DENIES SHORTNESS OF BREATH. +2 PITTING EDEMA NOTED TO BLE. O2 @ 0.5L VIA NASAL CANNULA WITH HUMIDIFIER. PATIENT DENIES ANY NAUSEA. HS MEDICATIONS GIVEN WITH PUDDING. PATIENT WITHOUT FURTHER NEEDS, WILL CONTINUE TO MONITOR. CALL LIGHT WITHIN REACH AND BED ALARM ON.
--- NOTE | 2017-11-08 05:10 | NUR ---
CLEANER HOUSEKEEPING TO REPORT THAT PATIENT'S O2 SATURATION WITH THIS MORNINGS VITALS RESULTED IN 94% ON 0.5L O2. THIS NURSE TO TURN PATIENT'S O2 OFF AT THIS TIME. WILL RECHECK IN 30 MIN.
--- NOTE | 2017-11-08 06:07 | NUR ---
O2 SATURATION RECHECKED AT THIS TIME, RESULTING IN 93% O2 ON ROOM AIR.
[2017-11-08 06:14] VITALS: BP 102/60
--- NOTE | 2017-11-08 08:46 | NUR ---
Pt takes PO meds without difficulty. Has guitar out, tunes and begins playing and singing. Reports difficulty getting finger to "hit the frets" but is able to sing and play several songs. Reports planning to take shower this AM and requests that bathroom door be opened to allow room to warm up. Denies pain. Denies any further needs at this time.
[2017-11-08 12:39] VITALS: BP 112/53
--- NOTE | 2017-11-08 14:37 | NUR ---
Roscoe requests Home health choice sheet so he can discuss w/ his [id number] and information given. SWB team meets in pt's room to update his POC per pt's rquest.
--- NOTE | 2017-11-08 16:10 | NUR ---
Pt gags on thick phlegm, this in turn causes him to vomit approx 100ml clear fluid. Pt denies feeling nauseated. Rinses mouth with water and mouthwash.
[2017-11-08 17:56] VITALS: BP 130/58
--- NOTE | 2017-11-08 18:13 | NUR ---
Pt refuses dinner tray, requests ice cream and gatorade reporting that he "cannot even think about food right now."
--- NOTE | 2017-11-09 05:30 | NUR ---
Patient claims he slept well last night, appeared to be resting during hourly checks, up to the bathroom this am to void, then up into the chair, he tells nurse [place] and habits hard, he always gets up early, denies any needs/complaints this morning, call light within reach,
[2017-11-09 06:22] VITALS: BP 114/61
--- NOTE | 2017-11-09 07:20 | NUR ---
REPORT RECEIVED FROM Henny MAYERRN
--- NOTE | 2017-11-09 08:00 | NUR ---
PATIENT SITTING UP IN RECLINER. SHIFT ASSESSMENT COMPLETE. PATIENT ALERT AND ORIENTED X4. DENIES ANY PAIN OR DISCOMFORTS AT THIS TIME. DENIES SHORTNESS OF BREATH OR DIFFICULTIES BREATHING. PATIENT REPORTS BREATHING FEELS "PRETTY GOOD" PATIENT REPORTS HAVING PRODUCTIVE COUGH WITH WHITE SPUTUM. PATIENT REPORTS THAT HE VOMITED YESTERDAY AND THAT NOW HE IS JUST WATCHING EVERTYTHING THAT HE EATS FOR HIS STOMACH. DENIES ANY NAUSEA AT THIS TIME. PATIENT'S CALL LIGHT WITHIN REACH. CHAIR ALARM ON.
[2017-11-09 12:15] VITALS: BP 114/67
[2017-11-09 18:22] VITALS: BP 105/49
--- NOTE | 2017-11-09 19:20 | NUR ---
REPORT GIVEN TO Henny MAYERRN
[2017-11-10 06:25] VITALS: BP 101/62
--- NOTE | 2017-11-10 11:58 | NUR ---
Spoke to pt, and son about HH benefits and also gave pt's a list of private pay assistance agencies, should she find she needs additional assistance at home. Pt's son states that family is around to help pt and his as well. Pt and family have chosen [facility] but pt wishes to discuss w/ his daughter in law first about his choice prior to signing choice list. Pt and family are agreeable to discuss HH benefits w/ [facility] nurse, and [facility] is notified and will have Karl come to talk w/ pt next week prior to discharge.
[2017-11-10 12:42] VITALS: BP 110/69
[2017-11-10 18:26] VITALS: BP 127/71
--- NOTE | 2017-11-10 19:30 | NUR ---
REPORT GIVEN TO Anuja ORTIZ RN
[2017-11-11 06:21] VITALS: BP 124/72
--- NOTE | 2017-11-11 10:42 | NUR ---
PT FOUND SITTING IN CHAIR AFTER EATING BREAKFAST. DENIES ANY PAIN. AOX3. LUNGS DIMINISHED BUT CLEAR, HEART SOUNDS REGULAR, BOWEL SOUNDS PRESENT. NO EDEMA NOTED TO BLE. CALL LIGHT IN REACH NO OTHER NEEDS NOTED.
[2017-11-11 12:16] VITALS: BP 101/65
[2017-11-11 18:03] VITALS: BP 123/99
--- NOTE | 2017-11-11 18:19 | NUR ---
PT HAS HAD VISITORS TODAY AND HAS TAKEN MULTIPLE WALKS IN THE ALL TODAY WITH SBA. NO C/O PAIN THROUGHOUT DAY. HAS BEEN IN GOOD SPIRITS AND HAS BEEN PLAYING HIS GUITAR AND SINGING ON AND OFF ALL DAY. NO CHANGES IN PREVIOUS ASSESMENT. WILL CONTINUE TO MONITOR.
--- NOTE | 2017-11-11 19:00 | NUR ---
Report received from Wendi Valero RN
--- NOTE | 2017-11-11 19:40 | NUR ---
Pt resting in bed, son and [id number] at side. 1920 Pt ambulated to the bathroom, used gait belt and performance improvement analyst socks on. Pt had small soft loose BM. Color brown. Dressing on right coccyx changed, due to small amount of brown color stool noted on right coccyx dressing. Skin under dressing CDI. C/o's of back pain when walking and repositioning.
--- NOTE | 2017-11-11 20:40 | NUR ---
Resting in bed, bed alarm set. Awake and a/o x 3. C/o's of back pain. K-pad applied to back. Offered pt norco. Pt declined. Stated I'll wait and see how I feel. Offered evening snack. Pt decline. Pt did own oral care and HS care.
--- NOTE | 2017-11-11 22:00 | NUR ---
PICC line dressing sterile dressing change done. PICC line cap change done. Pt tolerated without difficulty. Pt given strawberry ensure, drank 100%.
--- NOTE | 2017-11-12 00:12 | NUR ---
Resting in bed, bed alarm set. Eyes closed even respirations.
--- NOTE | 2017-11-12 06:30 | NUR ---
Q hourly checks done. Bed alarm set. Has been resting in bed with eyes closed even respirations. Currently awake, and a/o x 3. Ambulated to the bathroom, used walker, gait belt and seat covers trimmer socks on. Gait steady. Denied need for pain medication. Continues to have k-pad to back.
--- NOTE | 2017-11-12 07:10 | NUR ---
Report to Maite Storey RN
[2017-11-12 08:25] VITALS: BP 106/61
--- NOTE | 2017-11-12 08:41 | NUR ---
Pt sitting in chair playing guitar after completing breakfast. Denies complaint of pain, nausea, or dyspnea. AM meds given without issue. No needs at this time.
[2017-11-12 12:00] VITALS: BP 112/56
[2017-11-12 18:08] VITALS: BP 94/43
--- NOTE | 2017-11-12 19:20 | NUR ---
Report received from Maite BARTLETT. Patient sitting up in recliner with pressure pad alarm on. A/O x4. Denies pain. States has had some low back pain but has been utilizing an heat pad and that has helped. Denies need for analgesic. States he is feeling really good today. Denies nausea. No shortness of breath. Assessment completed. Assisted to BR with SBA, gaitbelt and cane. Gait steady. Does own oral cares. Assisted to bed. Watching TV. Bed alarm on. Call light in reach.
--- NOTE | 2017-11-13 00:28 | NUR ---
Rests with eyes closed. No signs of pain or distress. Bed alarm on. Call light in reach.
[2017-11-13 06:14] VITALS: BP 114/61
--- NOTE | 2017-11-13 07:14 | NUR ---
Report to Sara BARTLETT.
--- NOTE | 2017-11-13 07:20 | NUR ---
REPORT RECEIVED FROM EMIL REED LPN
[2017-11-13 11:07] LABS: PH-URINE 6.5 (5.0 - 8.0); URINE APPEARANCE CLEAR; URINE BILIRUBIN NEGATIVE (NEGATIVE); URINE BLOOD NEGATIVE (NEGATIVE); URINE COLOR YELLOW; URINE GLUCOSE NEGATIVE (NEGATIVE); URINE KETONE NEGATIVE (NEGATIVE); URINE LEUKOCYTE ESTERASE NEGATIVE (NEGATIVE); URINE MUCUS PRESENT (NOT PRESENT); URINE NITRATE NEGATIVE (NEGATIVE); URINE PROTEIN(semi-quant) TRACE mg/dL (NEGATIVE); URINE UROBILINOGEN NORMAL (NORMAL)
[2017-11-13 12:33] VITALS: BP 120/76
[2017-11-13 18:24] VITALS: BP 106/63
--- NOTE | 2017-11-13 19:20 | NUR ---
REPORT GIVEN TO NAZARIO LEON LPN
--- NOTE | 2017-11-13 19:50 | NUR ---
Report received from Sara BARTLETT. Patient resting supine in bed watching [employer] game. A/O x4. Denies pain. Denies nausea. Assessment completed. States wants HS medications after BB game later tonight. Bed alarm on. Call light in reach. Denies questions, wants or needs.
--- NOTE | 2017-11-13 22:30 | NUR ---
Scheduled HS medications taken at this time. Up to BR, oral cares done, back to bed. Bed alarm on. Call light in reach.
--- NOTE | 2017-11-14 02:57 | NUR ---
Rests in bed with eyes closed. No signs of pain or distress. Bed alarm on. Call light in reach.
--- NOTE | 2017-11-14 05:15 | NUR ---
Up to BR with cane and SBA. Took scheduled AM medication at this time. Denies pain or needs. Slept fairly well, stated room was too hot. Advised patient to call and alert staff to turn down heat next time.
[2017-11-14 06:36] VITALS: BP 116/57
--- NOTE | 2017-11-14 07:19 | NUR ---
Report to Sara BARTLETT.
--- NOTE | 2017-11-14 07:20 | NUR ---
REPORT RECEIVED FROM NAZARIO LEON LPN
[2017-11-14 12:50] VITALS: BP 117/61
--- NOTE | 2017-11-14 13:00 | NUR ---
REPORT GIVEN TO JANUARY,RN
[2017-11-14 18:06] VITALS: BP 115/68
--- NOTE | 2017-11-14 19:00 | NUR ---
Report received from Mckenna Dan RN
--- NOTE | 2017-11-14 21:31 | NUR ---
Offered patient a snack. Pt declined. Pt had been watching a game on TV. Currently awake and a/o x 3. Given evening schedule medication per pt request. Pt did own oral and HS care.
--- NOTE | 2017-11-15 | NUR ---
Q hourly checks done. Bed alarm set. Resting in bed, eyes closed even respirations. Pt has repositioned self.
--- NOTE | 2017-11-15 05:00 | NUR ---
Q hourly checks done. Bed alarm set. Resting in bed, eyes closed even respirations.
[2017-11-15 05:40] VITALS: BP 136/67
--- NOTE | 2017-11-15 07:15 | NUR ---
Report given to Perla Vail RN
[2017-11-15 12:37] VITALS: BP 117/67
[2017-11-15 18:02] VITALS: BP 128/70
--- NOTE | 2017-11-15 19:55 | NUR ---
Report received from Perla BARTLETT. Patient sitting up in recliner. A/O x4. Denies pain. Denies shortness of breath or cough. Excited to be going home tomorrow. Assessment completed. Denies wants or needs.
[2017-11-16 06:02] VITALS: BP 115/65
--- NOTE | 2017-11-16 06:38 | NUR ---
Restes part of night. Up early around 0400 reading a book. Had shower at 0530. Sitting in recliner. Played guitar for staff. Reading his book. Ready to go home today. Scheduled AM medication take.
--- NOTE | 2017-11-16 07:18 | NUR ---
Report to Lesly BARTLETT.
[2017-11-16] MEDS ORDERED: NORVASC 10MG10 MG PO (08:56)
[2017-11-16] MEDS ORDERED: VERAPAMIL 440 MG/TAB PO (08:56)
[2017-11-16] MEDS ORDERED: DESYREL 100MG100 MG PO (08:57)
[2017-11-16] MEDS ORDERED: PANTOPRAZOLE SO40 MG PO (08:58)
[2017-11-16] MEDS ORDERED: ZESTORETIC 20-1 EACH PO (08:59)
--- NOTE | 2017-11-16 09:00 | NUR ---
Pt is ready for discharge having previously signed his BIPA notice, and he has no objections to discharge today. nurse has been in to visit w/ him and orders have been obtained and will be sent to them. anticipates admitting pt this afternoon and will contact pt to advise him prior to coming. orders and records [facility] to [facility].
--- NOTE | 2017-11-16 09:57 | NUR ---
Discussed d/c instructions with pt and . Reinforced the need to fill Rx's as ordered and continue taking meds as ordered. Pt reports that he does not plan to fill protonix and also states he will "find a way to use the verapamil I have at home." Explain that home dose is not the same as current dose. Rx are faxed as ordered, to [facility]. Pt ambulates from facility using own cane. Belongings carried out by family members.
== END 2017-11-16 09:57 | disposition home health service (06) | DRG 91 ==
LOC: MED/SURG 15:46
PROVIDERS: Nurse Practitioner Primary Care; Physician Assistant; ADMIT Family Medicine
DX: S06.34 Traumatic hemorrhage of right cerebrum (principal); J18.9 Pneumonia, unspecified organism; I69.354 Hemiplegia and hemiparesis following cerebral infarction affecting left non-dominant side; T80.1XXA Vascular complications following infusion, transfusion and therapeutic injection, initial encounter; I80.8 Phlebitis and thrombophlebitis of other sites; R53.81 Other malaise; I10 Essential (primary) hypertension; W19.XXXS Unspecified fall, sequela; Z96.653 Presence of artificial knee joint, bilateral; E86.0 Dehydration
CPT/HCPCS: J1956; J3370; J7050; Q9967

== ENCOUNTER 2018-01-11 10:00 | Outpatient (RCR) | payer MEDICARE ==
[~2018-01-11 10:00] MED LIST changes: +DESYREL 100MG100 MG PO; +NORVASC 10MG10 MG PO; +PANTOPRAZOLE SO40 MG PO; +VERAPAMIL 440 MG/TAB PO; +VIBRAMYCIN HYC100 MG PO; +ZESTORETIC 20-1 EACH PO
== END 2018-01-11 10:30 | disposition home or self-care (01) ==
LOC: PT 10:00
DX: I69.222 Dysarthria following other nontraumatic intracranial hemorrhage (principal); I10 Essential (primary) hypertension
CPT/HCPCS: G8978-GP; G8979-GP

== ENCOUNTER 2018-09-06 14:30 | Outpatient (RCR) | payer MEDICARE | END 2018-09-06 15:00 | disposition home or self-care (01) | LOC: SPEECH 14:30 | DX: I69.322 Dysarthria following cerebral infarction (principal); I69.391 Dysphagia following cerebral infarction ==

== ENCOUNTER 2019-01-17 13:00 | Outpatient (RCR) | payer MEDICARE | END 2019-01-17 13:30 | LOC: PT 13:00 | DX: M25.511 Pain in right shoulder (principal) ==

== ENCOUNTER 2020-11-17 16:38 | Emergency (ER) | payer MEDICARE ==
[2020-11-17] MEDS ORDERED: VERAPAMIL 440 MG/TAB PO (17:10)
[2020-11-17 17:48] LABS: HEMOGLOBIN 14.9 g/dL (13.5-18.0); MEAN CELL VOLUME 91 fl (78-100); MEAN CORPUSCULAR HEMOGLOBIN 31 pg (27-31); MEAN CORPUSCULAR HGB CONC 34 g/dL (33-37); MEAN PLATELET VOLUME 10.9 fl (7.4-10.4); PLATELET COUNT 134 K/mm3 (130-400); RED BLOOD COUNT 4.83 M/mm3 (4.20-5.60); WHITE BLOOD COUNT 13.5 K/mm3 (4.8-10.8)
[2020-11-17 17:56] LABS: ALBUMIN 3.4 g/dL (3.4-4.8); POTASSIUM 3.5 mmol/L (3.5-5.1)
[2020-11-17 17:57] LABS: CALCIUM 9.2 mg/dL (8.3-10.5)
[2020-11-17 17:59] LABS: TOTAL PROTEIN 6.5 g/dL (6.2-8.1)
[2020-11-17 18:00] LABS: TOTAL BILIRUBIN 2.9 mg/dL (0.2-1.2)
[2020-11-17 18:11] LABS: TROPONIN-I 0.33 ng/mL (<0.030)
[2020-11-17 18:12] LABS: BAND 8 % (0-10); LYMPHOCYTE 3 % (20-51); MONOCYTE 2 % (3-10); NEUTROPHILS 87 % (42-75)
[2020-11-17 18:13] LABS: OVALOCYTES 1+
[2020-11-17 19:35] LABS: URINE APPEARANCE CLEAR; URINE BILIRUBIN 1+ (NEGATIVE); URINE COLOR AMBER; URINE GLUCOSE NEGATIVE (NEGATIVE); URINE KETONE NEGATIVE (NEGATIVE); URINE NITRATE NEGATIVE (NEGATIVE); URINE PROTEIN(semi-quant) 1+ mg/dL (NEGATIVE); URINE UROBILINOGEN NORMAL (NORMAL)
[2020-11-17 19:36] LABS: URINE BLOOD TRACE (NEGATIVE); URINE LEUKOCYTE ESTERASE NEGATIVE (NEGATIVE); URINE MUCUS PRESENT (NOT PRESENT)
[2020-11-17 22:44] VITALS: BP 101/60
== END 2020-11-17 22:44 | disposition short-term general hospital (02) ==
LOC: ED 16:38
PROVIDERS: Nurse Practitioner Family
DX: A41.9 Sepsis, unspecified organism (principal); K80.00 Calculus of gallbladder with acute cholecystitis without obstruction; R74.8 Abnormal levels of other serum enzymes; R09.02 Hypoxemia; I48.91 Unspecified atrial fibrillation; I10 Essential (primary) hypertension; Z20.822 Contact with and (suspected) exposure to COVID-19; Z90.89 Acquired absence of other organs; Z86.73 Personal history of transient ischemic attack (TIA), and cerebral infarction without residual deficits; Z87.891 Personal history of nicotine dependence; Z88.0 Allergy status to penicillin; Z88.6 Allergy status to analgesic agent
CPT/HCPCS: J0696; J2405; J3490; J7030; J7040; Q9967

== ENCOUNTER → 2021-01-19 | Outpatient (CLI) | payer MEDICARE | LOC: LAB 10:04 | DX: K82.A2 Perforation of gallbladder in cholecystitis (principal); Z20.822 Contact with and (suspected) exposure to COVID-19 ==

== ENCOUNTER 2024-02-19 09:01 | Emergency (ER) | payer MEDICARE ==
[~2024-02-19] VITALS: Ht 182.9 cm; Wt 101.3 kg
[2024-02-19] MEDS ORDERED: DAILY VALUE1 EACH PO (09:29)
[2024-02-19] MEDS ORDERED: TYLENOL 325MG325 MG (09:30)
[2024-02-19] MEDS ORDERED: HYDROCHLOROTHIA1 T15 PO (09:31)
[2024-02-19 09:52] LABS: BASO # 0.03 K/mm3 (0.02-0.10); EOS # 0.08 K/mm3 (0.04-0.40); EOS % 1.5 % (0.0-4.0); HEMATOCRIT 46.2 % (42.0-52.0); HEMOGLOBIN 15.6 g/dL (13.5-18.0); LYMPH# 0.87 K/mm3 (1.50-4.00); MEAN CELL VOLUME 95 fl (78-100); MEAN CORPUSCULAR HEMOGLOBIN 32 pg (27-31); MEAN CORPUSCULAR HGB CONC 34 g/dL (33-37); MEAN PLATELET VOLUME 10.1 fl (7.4-10.4); MONO # 0.64 K/mm3 (0.20-0.80); NEU # 3.61 K/mm3 (1.40-6.50); PLATELET COUNT 179 K/mm3 (130-400); RED BLOOD COUNT 4.89 M/mm3 (4.20-5.60); RED CELL DISTRIBUTION WIDTH 14.1 % (11.5-14.5); WHITE BLOOD COUNT 5.2 K/mm3 (4.8-10.8)
[2024-02-19 10:07] LABS: ALBUMIN 3.8 g/dL (3.4-4.8)
[2024-02-19 10:08] LABS: CALCIUM 9.4 mg/dL (8.3-10.5)
[2024-02-19 10:09] LABS: TOTAL PROTEIN 6.5 g/dL (6.2-8.1)
[2024-02-19 10:11] LABS: TOTAL BILIRUBIN 0.7 mg/dL (0.2-1.2)
[2024-02-19 10:24] LABS: TROPONIN-I 0.075 ng/mL (0.00-0.033)
[2024-02-19] MEDS ORDERED: SUPER BETA PROSTATE PO (10:27)
[2024-02-19] MEDS ORDERED: Furosemide 40 MG/4 ML VIAL IV ONE (12:00)
[2024-02-19 12:34] VITALS: BP 161/98
== END 2024-02-19 12:34 | disposition home or self-care (01) ==
LOC: ED 09:01
PROVIDERS: Nurse Practitioner Family
DX: I11.0 Hypertensive heart disease with heart failure (principal); I50.9 Heart failure, unspecified; Z79.899 Other long term (current) drug therapy; Z87.891 Personal history of nicotine dependence
CPT/HCPCS: J1940

== ENCOUNTER 2024-07-03 13:10 | Inpatient (IN) | payer MEDICARE ==
[~2024-07-03] VITALS: Ht 180.3 cm; Wt 92.3 kg
[~2024-07-03 13:10] MED LIST changes: +DAILY VALUE1 EACH PO; +HYDROCHLOROTHIA1 T15 PO; +SUPER BETA PROSTATE PO; +TYLENOL 325MG325 MG
--- NOTE | 2024-07-03 16:08 | NUR ---
PT ADMITTED. PTS SON AT BEDSIDE DURING ADMISSION. IV DC'D TO L FOREARM, NO COMPLICATIONS, IV INTACT. PT A/O ANSWERING QUESTIONS APPROPRIATLY. [place]. SLOW SPEECH. PTS SON REPORTS THAT PT HAS A DNR AND WILL BRING PAPERWORK FROM HOME. PT REPORTS SOME PAIN DURING TRANSPORT BUT DENIES ANY PAIN CURRENLTY.
--- NOTE | 2024-07-03 16:15 | NUR ---
PER HELIO WIN, NO STROKE SPECIFIC INTERVENTIONS NEEDED DURING SWING BED STAY. MOIST AND MINCED DIET CONTINUED FROM [facility]. DNR SIGNED FOLLOWING CONVERSATION WITH HELIO WIN. THIS RN WITNESSED.
[2024-07-03] MEDS ORDERED: ELIQUIS5 MG PO (16:21)
[2024-07-03] MEDS ORDERED: CLOPIDOGREL PO (16:22)
[2024-07-03] MEDS ORDERED: ATORVASTATIN CA40 MG PO (16:22)
[2024-07-03] MEDS ORDERED: TYLENOL PM EXTR1 TA1 PO ×2 (16:23→16:42)
[2024-07-03] MEDS ORDERED: ISOSORBIDE MONO60 M2 PO (16:24)
[2024-07-03] MEDS ORDERED: TOPROL XL 25MG25 MG PO (16:24)
[2024-07-03] MEDS ORDERED: [UNRECOGNIZED DRUG - OTHER] PO (16:25)
[2024-07-03] MEDS ORDERED: ACETAMINOPHEN325 M1 PO (16:36)
[2024-07-03] MEDS ORDERED: NITROGLYCERIN0.4 M1 SL (16:37)
[2024-07-03 18:15] VITALS: BP 149/86
--- NOTE | 2024-07-03 18:23 | NUR ---
PT RESTING ON COT WATCHING THE [employer] GAME WITH SON AT BEDSIDE. PT REQUESTS VANILLA PROTEIN SHAKE AND VANILLA ICE CREAM, AUDELIA CADET PREVIOUSLY APPROVED FOR PATIENT. PROVIDED PER REQUEST. CALL LIGHT WITHIN REACH, DENIES ANY OTHER NEEDS AT THIS TIME.
--- NOTE | 2024-07-03 19:12 | NUR ---
REPORT TO WILVER BARTLETT.
[2024-07-03] MEDS ORDERED: Polyethylene Glycol 3350 Powder 17 GM PACKET PO PRN (19:30)
[2024-07-03] MEDS ORDERED: Acetaminophen 325 MG TAB PO PRN (19:30)
[2024-07-03] MEDS ORDERED: Docusate Sodium 100 MG CAP PO PRN (19:30)
[2024-07-03 20:03] LABS: BASO # 0.03 K/mm3 (0.02-0.10); EOS # 0.06 K/mm3 (0.04-0.40); EOS % 0.7 % (0.0-4.0); HEMATOCRIT 42.6 % (42.0-52.0); HEMOGLOBIN 14.6 g/dL (13.5-18.0); MEAN CELL VOLUME 93 fl (78-100); MEAN CORPUSCULAR HEMOGLOBIN 32 pg (27-31); MEAN CORPUSCULAR HGB CONC 34 g/dL (33-37); MEAN PLATELET VOLUME 9.6 fl (7.4-10.4); NEU # 7.44 K/mm3 (1.40-6.50); PLATELET COUNT 211 K/mm3 (130-400); RED BLOOD COUNT 4.56 M/mm3 (4.20-5.60); RED CELL DISTRIBUTION WIDTH 13.1 % (11.5-14.5); WHITE BLOOD COUNT 9.2 K/mm3 (4.8-10.8)
[2024-07-03 20:08] LABS: ALBUMIN 3.5 g/dL (3.4-4.8)
[2024-07-03 20:09] LABS: CALCIUM 9.1 mg/dL (8.3-10.5)
[2024-07-03 20:10] LABS: TOTAL PROTEIN 6.2 g/dL (6.2-8.1)
[2024-07-03 20:12] LABS: TOTAL BILIRUBIN 1.1 mg/dL (0.2-1.2)
[2024-07-03] MEDS ORDERED: Acetaminophen 500 MG TAB PO SCH (20:17)
[2024-07-03] MEDS ORDERED: Apixaban 5 MG TABLET PO SCH (21:00)
[2024-07-03 21:26] VITALS: BP 168/99; BP_SYST 99
[2024-07-03] MEDS ORDERED: Ondansetron 4 MG/2 ML VIAL IV PRN (21:30)
[2024-07-03 22:19] LABS: TROPONIN-I 0.036 ng/mL (0.00-0.033)
--- NOTE | 2024-07-03 23:29 | NUR ---
pt alert and oriented, pt resting in bed at this time. pt assessed and medications delivered. 10 minutes after medication administration pt did vomit. telemery reported afib. provider dinh aware, provider ordered iv placement. pt now resting in bed and denies any sensation of N&V, pt call light in reach and bed alarmed
[2024-07-04 06:15] VITALS: BP 145/89
[2024-07-04] MEDS ORDERED: Clopidogrel 75 MG TAB PO SCH (09:00)
[2024-07-04] MEDS ORDERED: amLODIPine 5 MG TAB PO SCH (09:00)
[2024-07-04] MEDS ORDERED: Isosorbide Mononitrate ER (24-HR) 60 MG TAB PO SCH (09:00)
[2024-07-04] MEDS ORDERED: Multivitamin TAB PO SCH (09:00)
[2024-07-04 10:07] LABS: ALBUMIN 3.6 g/dL (3.4-4.8)
[2024-07-04 10:08] LABS: CALCIUM 9.4 mg/dL (8.3-10.5)
[2024-07-04 10:09] LABS: BASO # 0.02 K/mm3 (0.02-0.10); EOS # 0.05 K/mm3 (0.04-0.40); EOS % 0.6 % (0.0-4.0); HEMOGLOBIN 15.1 g/dL (13.5-18.0); LYMPH# 0.74 K/mm3 (1.50-4.00); MEAN CELL VOLUME 94 fl (78-100); MEAN CORPUSCULAR HEMOGLOBIN 32 pg (27-31); MEAN CORPUSCULAR HGB CONC 34 g/dL (33-37); MEAN PLATELET VOLUME 9.6 fl (7.4-10.4); MONO # 0.79 K/mm3 (0.20-0.80); NEU # 6.23 K/mm3 (1.40-6.50); PLATELET COUNT 210 K/mm3 (130-400); WHITE BLOOD COUNT 7.8 K/mm3 (4.8-10.8)
[2024-07-04 10:10] LABS: TOTAL PROTEIN 6.4 g/dL (6.2-8.1)
[2024-07-04 10:11] LABS: TOTAL BILIRUBIN 1.1 mg/dL (0.2-1.2)
[2024-07-04 10:22] LABS: TROPONIN-I 0.031 ng/mL (0.00-0.033)
[2024-07-04] MEDS ORDERED: Cetirizine 10 MG TAB PO SCH (11:12)
[2024-07-04] MEDS ORDERED: Fluticasone Nasal 50 MCG/Spray 16 GM BOTTLE NS SCH (11:12)
[2024-07-04] MEDS ORDERED: Polyethylene Glycol 3350 Powder 17 GM PACKET PO SCH (12:53)
[2024-07-04] MEDS ORDERED: Acetaminophen 500 MG TAB PO PRN (13:15)
[2024-07-04 17:45] VITALS: BP 129/73
--- NOTE | 2024-07-04 18:56 | NUR ---
REPORT RECIEVED FROM JEREMY BARTLETT
--- NOTE | 2024-07-04 21:00 | NUR ---
pt male dalila changed at this time, to be changed again in 24hrs pt handled the procedure well
--- NOTE | 2024-07-04 21:39 | NUR ---
pt alert and oriented, pt resting in bed at this time. pt reports no pain at this time. pt assessed and medications delivered without complication, medications crushed and given in vanilla pudding. pt care performed by neelam cheema. pt now resting in bed with call light in reach and bed alarm on and in lowest position.
[2024-07-05 05:48] VITALS: BP 148/93
--- NOTE | 2024-07-05 06:52 | NUR ---
report to caden sanderson
[2024-07-05 08:33] LABS: BASO # 0.04 K/mm3 (0.02-0.10); EOS # 0.16 K/mm3 (0.04-0.40); EOS % 2.3 % (0.0-4.0); HEMATOCRIT 41.7 % (42.0-52.0); LYMPH# 0.88 K/mm3 (1.50-4.00); MEAN CELL VOLUME 95 fl (78-100); MEAN CORPUSCULAR HEMOGLOBIN 32 pg (27-31); MEAN CORPUSCULAR HGB CONC 34 g/dL (33-37); MEAN PLATELET VOLUME 9.8 fl (7.4-10.4); MONO # 0.72 K/mm3 (0.20-0.80); NEU # 5.08 K/mm3 (1.40-6.50); PLATELET COUNT 196 K/mm3 (130-400); RED BLOOD COUNT 4.38 M/mm3 (4.20-5.60); WHITE BLOOD COUNT 6.9 K/mm3 (4.8-10.8)
[2024-07-05 08:34] LABS: ALBUMIN 3.3 g/dL (3.4-4.8)
[2024-07-05 08:36] LABS: TOTAL PROTEIN 5.8 g/dL (6.2-8.1)
--- NOTE | 2024-07-05 12:54 | NUR ---
PT WANTS TO TALK WITH HOSPITALIST ABOUT BEING DISCHARGED TO HOME TODAY.
[2024-07-05 17:35] VITALS: BP 133/66
--- NOTE | 2024-07-05 23:49 | NUR ---
PT HAVING RUNS OF SUGAR. STEVE NOTIFIED. POTASSIUM 4.1. PT SLEEPING AND ASYMPTOMATIC. NO CHANGES ORDERED. PT REMAINS ON TELE.
[2024-07-05 23:59] VITALS: BP 142/81
[2024-07-06 06:23] VITALS: BP 126/80
--- NOTE | 2024-07-06 07:35 | NUR ---
Report received and care assumed. Pt resting in bed, eyes closed, CPAP in place. No signs of distress or discomfort noted at this time. Call light in reach, chair alarm on.
--- NOTE | 2024-07-06 12:45 | NUR ---
Pt requested bed bath vs a shower. Provided by FILBERT GROWER. Purewic still in place and pt tolerating well. Denies pain with no needs or concerns at this time.
--- NOTE | 2024-07-06 15:00 | NUR ---
Pt ambulates in halls and becomes short of breath upon ambulating in the halls. Upon returning to room, oxygen saturation is 85% on room air. Oxygen saturation rapidly increased to 91% after sitting down in room.
--- NOTE | 2024-07-06 17:50 | NUR ---
Pt ambulates with oxygen at 2 L/min. When ambulating, pt has less SOB than earlier in the day. Upon returning to room, O2 saturation was 91% upon returning to room. Pt states that he is feeling better than ambulation earlier.
[2024-07-06 18:14] VITALS: BP 121/72
--- NOTE | 2024-07-06 19:08 | NUR ---
Report given to Sarah and care transferred.
[2024-07-07 06:29] VITALS: BP 143/80
--- NOTE | 2024-07-07 09:00 | NUR ---
Pt Ox4. Takes multiple PO meds crushed in pudding, without difficulty. VSS, denies pain. Continues on telemetry with irrregular rhythm, HR 80-140's. Pt denies chest pain or SOB. External monitor remains in place. Pt reports that it is to be charged again on Monday07/08/24. Pt states that monitor information transmits directly to cardiology via cellphone manpreet. BUE donor support technician and movement strong and equal. BLE weak, able to stand/pivot into bed and raise/hold legs unassisted.
[2024-07-07 18:00] VITALS: BP 151/76
[2024-07-08 06:11] VITALS: BP 118/67
--- NOTE | 2024-07-08 14:00 | NUR ---
Pt Ox4, VSS. Reports intermittent pain to L wrist. Pt reports pain is decreased from early this AM. 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 Is noted to have mild swelling that was not visible yesterday during day shift. Worked with ST this AM, has been swallowing well when eating with staff at bedside and continues to take pills crushed in pudding with multiple drinks between bites.
[2024-07-08 17:14] VITALS: BP 114/68
--- NOTE | 2024-07-08 20:00 | NUR ---
HS meds along with tylenol reviewed and given. Initially reports left wrist pain then states "that was earlier" denies pain at this time. Alert and oriented x 4. Speech difficult to understand but has improved in clarity. LUE elevated on pillow and kpad applied. INT left forearm out dated and dc'd without problems.
[2024-07-09 05:54] VITALS: BP 135/77
--- NOTE | 2024-07-09 06:10 | NUR ---
Patient reports he didn't sleep well this noc.
[2024-07-09 18:21] VITALS: BP 138/75
--- NOTE | 2024-07-09 19:20 | NUR ---
Report received from Merry GALICIA. Patient resting supine in bed watching [employer] game. A/O x4. States has intermittent pain to L wrist but is 0/10. Swollen and tender to touch. Denies SOA or cough. States he had a "good" BM today. Denies pain or burning with urination. Purewick in place with nothing in canister at this time. Assessment completed. Denies questions, wants or needs at this time.Bed alarm on. Call light in reach.
--- NOTE | 2024-07-09 20:03 | NUR ---
Per Robert MEMBRENO, ok to discontinue order for continuous pulse ox. Patient did not have this on. Also discussed with Rocío patients request for a stronger analgesic then just Tylenol. Patient states "tylenol is a placebo".
--- NOTE | 2024-07-09 20:15 | NUR ---
HS medications taken whole one at a time per request. Swallows without S/S on choking. HOB elevated high fowlers for medication administration. Continues watching [employer] game, denies needs.
--- NOTE | 2024-07-09 21:59 | NUR ---
Calls and requests something besides Tylenol. Provider re-notified. Order received for Galt 10/24 on 0.5 MG tab. Patient states not really having much pain, 12/30 but would like to sleep. States he usually takes Tylenol PM at home.
--- NOTE | 2024-07-10 05:18 | NUR ---
Awakened by lab for lab draw. AM PO medication taken at this time.
--- NOTE | 2024-07-10 05:23 | NUR ---
Lab reports that patient refused blood draw, stated that the patient said the doctor said he didn't have to have it done.
[2024-07-10 06:02] VITALS: BP 115/60
--- NOTE | 2024-07-10 06:55 | NUR ---
Report to Marce BARTLETT.
[2024-07-10] MEDS ORDERED: diphenhydrAMINE 25 MG CAP PO PRN (09:00)
[2024-07-10 17:04] VITALS: BP 144/66
--- NOTE | 2024-07-10 18:19 | NUR ---
PT SAT IN CHAIR FOR ABOUT 2 HOURS DURING SUPPER AND VISITS FROM FAMILY. PT IS CURRENTLY BACK IN BED.
[2024-07-10] MEDS ORDERED: Melatonin 3 MG TAB PO SCH (20:00)
[2024-07-11 05:44] VITALS: BP 143/83
[2024-07-11] MEDS ORDERED: Melatonin 3 MG TAB PO SCH (17:00)
[2024-07-11 17:14] VITALS: BP 112/62
[2024-07-12 05:14] VITALS: BP 121/51
[2024-07-12 17:09] VITALS: BP 100/59
--- NOTE | 2024-07-12 23:15 | NUR ---
pt alert and oriented x4, pt resting in bed and reports no pain but some soreness to right wrist that the PT team helped alleviate. pt assessed and medications delivered without complication. pt drank small sips of water and handled them well. pt now resting in bed with call light in reach and bed alarm on.
[2024-07-13 06:07] VITALS: BP 107/62
--- NOTE | 2024-07-13 10:45 | NUR ---
PT IS RESTING IN BED. PT IS ABLE TO TAKE PILLS WITH SMALL SIPS OF WATER. PT DECLINED MIRALAX, HE HAD BM RECENTLY. PT REQUESTED TO GET UP OUT OF BED AND EAT HIS LUNCH IN HIS CHAIR.
[2024-07-13 17:06] VITALS: BP 129/79
--- NOTE | 2024-07-13 19:59 | NUR ---
pt alert and oriented x4, pt resting in bed upon entry requesting a boost. pt reports no pain. pt states he did not want to take melatonin at 5 so he may watch the football game. pt assessed, special consideration to the right inner groin area with barreir cream applied. pt now resting in bed, changing into gown with assistance from [facility]. pt denies delmy leonard needs at this time.
--- NOTE | 2024-07-13 20:10 | NUR ---
pt reports some shortness of air, pt o2 sats are 92-95% and respiratory rate when counted for a full minute is 25. Provider Minges notified, awaiting orders
[2024-07-13 21:24] VITALS: BP 128/72
--- NOTE | 2024-07-13 21:36 | NUR ---
provider minges approval for o2 for comfort
--- NOTE | 2024-07-13 22:22 | NUR ---
pt reports improved breathing at this time, pt is not on o2 but is boosted up in bed.
[2024-07-14 06:05] VITALS: BP 145/69
[2024-07-14 17:02] VITALS: BP 126/68
[2024-07-14] MEDS ORDERED: Melatonin 3 MG TAB PO ONE (21:00)
--- NOTE | 2024-07-14 21:18 | NUR ---
PT ALERT AND ORIENTED, PT RESTING IN BED WATCHING FOOTBALL AT THIS TIME. PT ASSSTED TO THE RESTROOM BY pct YAN. PT ASSESSED AND MEDICATIONS DELIVERED. PROVIDER TALHA AWARE OF PT REFUSAL OF ATORVASTATIN DESPITE THIS NURSE EDUCTION. PT NOW RESTING IN BED WITH CALL LIGHT IN REACH AND BED ALARM ON
[2024-07-15 05:08] VITALS: BP 103/69
--- NOTE | 2024-07-15 10:00 | NUR ---
Pt is alert and oriented times 4. He does have some slurred speech and at times is hard to understand. His hand plastics and composites inspector are strong bilaterally. He does have multiple areas of scabbed areas on head and face. He is able to ambulate with walker. He does complain of lower back pain but declined any medications . Warm blanket appled to lower back and repostioned multiple times. He does use call light when he has needs.
[2024-07-15 13:31] LABS: BASO # 0.02 K/mm3 (0.02-0.10); EOS # 0.15 K/mm3 (0.04-0.40); EOS % 2.6 % (0.0-4.0); HEMATOCRIT 38.3 % (42.0-52.0); HEMOGLOBIN 12.7 g/dL (13.5-18.0); LYMPH# 0.75 K/mm3 (1.50-4.00); MEAN CELL VOLUME 96 fl (78-100); MEAN CORPUSCULAR HEMOGLOBIN 32 pg (27-31); MEAN CORPUSCULAR HGB CONC 33 g/dL (33-37); MEAN PLATELET VOLUME 9.9 fl (7.4-10.4); MONO # 0.57 K/mm3 (0.20-0.80); NEU # 4.32 K/mm3 (1.40-6.50); PLATELET COUNT 209 K/mm3 (130-400); RED BLOOD COUNT 4.01 M/mm3 (4.20-5.60); RED CELL DISTRIBUTION WIDTH 12.8 % (11.5-14.5); WHITE BLOOD COUNT 5.8 K/mm3 (4.8-10.8)
[2024-07-15 13:39] LABS: ALBUMIN 3.4 g/dL (3.4-4.8)
[2024-07-15 13:40] LABS: CALCIUM 9.2 mg/dL (8.3-10.5)
[2024-07-15 13:41] LABS: TOTAL PROTEIN 5.9 g/dL (6.2-8.1)
[2024-07-15 13:43] LABS: TOTAL BILIRUBIN 0.6 mg/dL (0.2-1.2)
--- NOTE | 2024-07-15 14:16 | NUR ---
476 BNP called and given to notified. No new orders.
[2024-07-15 17:54] VITALS: BP 125/72
--- NOTE | 2024-07-15 23:21 | NUR ---
PATIENT A&O X 4. UP WITH ONE ASSIST TO AND FROM TOILET. DENIES PAIN OR DISCOMFORT ON ASSESSMENT. MEDIUM SOFT BM THIS EVENING. REFUSED ENSURE THIS EVENING. CALL LIGHT IN REACH. BED ALARM ON
--- NOTE | 2024-07-16 04:10 | NUR ---
PATIENT RESTING QUIETLY WITH EYES CLOSED. BREATHING UNLABORED ON RA. CALL LIGHT IN REACH
[2024-07-16 05:32] VITALS: BP 127/78
--- NOTE | 2024-07-16 07:20 | NUR ---
REPORT FROM DHRUV CRUZ. PT. UP IN CHAIR THIS AM. DENIES ANY NEEDS OR CONCERNS.
[2024-07-16 17:09] VITALS: BP 107/64
--- NOTE | 2024-07-16 18:18 | NUR ---
PT. UP TO CHAIR FOR MEALS. TOOK SCHEDULED MIRALAX TODAY. DIET CHANGED TO BITE SIZED, PT. DID WELL WITH SUPPER. DENIES ANY NEEDS OR CONCERNS.
--- NOTE | 2024-07-16 20:00 | NUR ---
Report received from Eneida BARTLETT. Patient rests in bed with LOAN OPERATIONS MANAGER's in room, repositioning and providing PO supplement. Watching [employer] game on TV. A/O x4. Denies pain. Assessment completed. HS medications taken whole without difficulty. Calls for assist to BR PRN. Denies wants or needs. Bed alarm on. Call light in reach.
--- NOTE | 2024-07-17 05:37 | NUR ---
Awake on and off most of the night. Up to BR PRN with staff 1:1 assist. Requests different blankets on and off through the night. Denies pain. Bed alarm on, call light in reach. AM medication taken whole without difficulty.
[2024-07-17 05:46] VITALS: BP 118/68
--- NOTE | 2024-07-17 07:10 | NUR ---
Report to Lesly BARTLETT
[2024-07-17 13:24] LABS: BASO # 0.02 K/mm3 (0.02-0.10); EOS # 0.14 K/mm3 (0.04-0.40); EOS % 2.6 % (0.0-4.0); HEMATOCRIT 39.4 % (42.0-52.0); HEMOGLOBIN 13.1 g/dL (13.5-18.0); LYMPH# 0.78 K/mm3 (1.50-4.00); MEAN CELL VOLUME 95 fl (78-100); MEAN CORPUSCULAR HEMOGLOBIN 32 pg (27-31); MEAN CORPUSCULAR HGB CONC 33 g/dL (33-37); MEAN PLATELET VOLUME 9.8 fl (7.4-10.4); MONO # 0.53 K/mm3 (0.20-0.80); NEU # 3.93 K/mm3 (1.40-6.50); PLATELET COUNT 216 K/mm3 (130-400); RED BLOOD COUNT 4.16 M/mm3 (4.20-5.60); WHITE BLOOD COUNT 5.4 K/mm3 (4.8-10.8)
[2024-07-17 13:32] LABS: ALBUMIN 3.6 g/dL (3.4-4.8)
[2024-07-17 13:33] LABS: CALCIUM 9.5 mg/dL (8.3-10.5)
[2024-07-17 13:35] LABS: TOTAL PROTEIN 6.2 g/dL (6.2-8.1)
[2024-07-17 13:36] LABS: TOTAL BILIRUBIN 0.7 mg/dL (0.2-1.2)
[2024-07-17] MEDS ORDERED: diphenhydrAMINE 12.5 MG/5 ML Oral Soln PO PRN (14:15)
[2024-07-17 18:13] VITALS: BP 116/69
--- NOTE | 2024-07-17 18:20 | NUR ---
Shift summary: Pt Ox4, denies pain. Bilat hand cable splicing technician strong/equal. Ambulates well 1A with walker. Swallows pills 2 at a time with water. No difficulties with bite sized diet. Pt states that he feels like he is good enough to return to home. Talk to pt about having 24 hour assist while at home. Pt says he has someone in mind that he used previously. Is under the impression that he is well enough to resume all previous activities.
--- NOTE | 2024-07-17 19:45 | NUR ---
Report received from Lesly BARTLETT. Patient rests in bed watching [employer] game on TV. A/O x4. Bed alarm on. Call light in reach.
--- NOTE | 2024-07-17 20:57 | NUR ---
Calls to be slid up in bed. MORTGAGE BANKER encouraged patient to assist with this task and patient able to help pull self up. This nurse in to administer HS medications. No sure about benadryl/Tylenol combo vs Tylenol PM. Educated on that is ingrediants that is in the Tylenol PM. Takes meds whole 2 at a time with no choking noted. Denies pain. Assessment completed. Bed alarm on. Call light in reach.
--- NOTE | 2024-07-18 05:44 | NUR ---
States he rested better this shift then prior ones. Awake intermittently to use BR with 1:1 assist and walker. AM medication taken. Bed alarm on. Call light in reach.
[2024-07-18 06:01] VITALS: BP 110/69
--- NOTE | 2024-07-18 06:01 | NUR ---
Coco Batista in house to do echocardiogram.
--- NOTE | 2024-07-18 07:01 | NUR ---
Report to Lesly BARTLETT
--- NOTE | 2024-07-18 09:50 | NUR ---
Pt up to recliner. Ox4, denies pain. Is requesting to move back to bed. Pt is reminded that he has back to back therapy sessions and PT/OT have asked that he stay up with only 1 hour rest in bed between meals. Pt is upset and wanting to lay down. Ask what he does at home, if he goes back to bed between meals. He reports that he sits in his recliner at home but it is more comfortable. Pt is agreeable to staying up until next therapy appt.
--- NOTE | 2024-07-18 16:54 | NUR ---
THIS CM MEET WITH CHAS'S SON AND HIS DAUGHTER IN LAW. CHAS AND HIS FAMILY WERE INFORMED THAT IT IS RECOMMENDED THAT HE HAVE 24/7 HOME CARE FOR SAFETY REASONS. CHAS SAYS THAT HE WAS THE CAREGIVER FOR HIS AND HIS HOME IS SET UP FOR HIM. WHEN ASKED HOW HE WOULD CALL FOR HELP IF HE NEEDED IT. HE REPLIED THAT HE DID NOT KNOW. HE WAS OKAY WITH THE CONSEQUENCES OF THAT POTENTIAL RESULT. I ASKED IF HE WAS INTERESTED IN VISITING WITH THE AREA ON AGING REGARDING HOME CARE ASSESSMENT. HE SAYS THAT HE IS. HE IS ALSO INTERESTED IN LIFE ALERT OR LIFE LINE DEVICE. HE WAS NOT FOR IT IN THE PAST BUT WILL CONSIDER STATING IT IS $39/MO. THIS CM ADVISED THAT HE HAVE 24/7 CARE FOR SAFETY. THE FAMILY AND CHAS ARE AWARE OF THIS RECOMMENDATION. CHAS ASKS DO I GET TO MAKE THE CHOICE. THIS TURF AND GROUNDS SUPERVISOR SAID YES YOU OF SOUND MIND AND CAN MAKE DECISIONS ON YOUR BEHALF. HE SAYS THAT HE WILL GO HOME. HE IS INTERESTED IN MEALS ON WHEELS. HE ASKED IF HE COULD DRIVE. THIS TURF AND GROUNDS SUPERVISOR SAID NO. NOT UNTIL HE IS RELEASED FROM HIS NEUROLOGIST TO DO SO. HE IS IN AGREEMENT TO LOOK AT OTHER OPTIONS. SUCH PUBLIC TRANSPORTATION AND HIS SON BEHZAD SAYS AGREES WITH THIS IDEA IF HE IS NOT AVAILABLE TO TAKE HIM. WILL CONTINUE TO ADVISE/RECOMMEND 24/7 CARE.
[2024-07-18 17:28] VITALS: BP 126/70
--- NOTE | 2024-07-18 18:29 | NUR ---
Pt sitting up in recliner. Requests to return to bed. Discuss staying up for Ensure. Deliver [place] ensure to pt. Agree to return to bed once ensure is finished. Pt reports that recliner is painful to sit in for extended period of time.
[2024-07-18 20:20] VITALS: BP 108/51
--- NOTE | 2024-07-18 20:42 | NUR ---
PT IS RESTING IN BED LYING SUPINE WITH THE HEAD OF BED ELEVATED. PT DENEIS ANY PAIN. PT REQUESTED A SNACK. THIS RN PROVIDED ICE CREAM. CALL LIGHT WITHIN REACH.
--- NOTE | 2024-07-19 01:00 | NUR ---
Report received from Florentino BARTLETT. Patient resting supine in bed with eyes closed. Respirations even and non-labored, no signs of pain or distress. Bed alarm on. Call light in reach.
--- NOTE | 2024-07-19 06:05 | NUR ---
AM medications given. Up to BR with 1:1 assist and walker. Voids clear yellow urine. Assisted back to bed. Denies pain or needs. Bed alarm on. Call light in reach.
--- NOTE | 2024-07-19 06:57 | NUR ---
Report to Marce BARTLETT
--- NOTE | 2024-07-19 07:23 | NUR ---
REPORT RECEIVED FROM DHRUV RIBERA.
[2024-07-19 08:29] VITALS: BP 119/74
[2024-07-19 19:00] VITALS: BP 110/71
--- NOTE | 2024-07-19 20:50 | NUR ---
Patient resting in bed. A&Ox4. Denies pain. HS meds given with water. PRN tylenol and benadryl given per patient request. No other needs at this time. Call light within reach, bed alarm on.
[2024-07-20 07:10] VITALS: BP 145/83
[2024-07-20 19:33] VITALS: BP 109/62
--- NOTE | 2024-07-20 19:49 | NUR ---
Report received from Tracie BARTLETT. Resting supine in bed watching [employer] game. A/O x4. Denies pain, SOA or cough. Assessment completed. HR irregular, hx afib. Lungs CTA, BS hyperactive x4. Reports frequent BM'sm Denies dysuria. K9 HANDLER in to assist to BR and with HS cares. Bed alarm on. Call light in reach.
--- NOTE | 2024-07-21 05:47 | NUR ---
Rested well through the night. Awakened for AM medication. Denies pain/needs. Up to BR PRN with 1 assist and walker.
--- NOTE | 2024-07-21 06:22 | NUR ---
Rested well through the night. Awakened this AM for scheduled PO medications. Up to BR PRN in the night.
--- NOTE | 2024-07-21 06:39 | NUR ---
Report to Marce BARTLETT.
[2024-07-21 07:15] VITALS: BP 147/71
[2024-07-21 19:28] VITALS: BP 116/70
--- NOTE | 2024-07-21 19:42 | NUR ---
Report received from Marce RN. Patient resting supine in bed watching TV. A/O x4. Denies pain. States he is ready to get changed for bed and do HS cares. Assessment completed. POLICE LIEUTENANT PATROL notified of need to get ready for bed. Patient able to call and make needs know. Bed alarm on. Call light in reach.
--- NOTE | 2024-07-22 05:56 | NUR ---
Awake off and on through the night. Up to BR with assist to BR PRN. Denies pain. AM medication taken.
--- NOTE | 2024-07-22 06:55 | NUR ---
Report to Dianna.
[2024-07-22 08:22] VITALS: BP 141/86
--- NOTE | 2024-07-22 14:47 | NUR ---
PATIENT SITTING IN RECLINER WHEN ENTERING ROOM AFTER THERAPY. PATIENT IS ALERT AND ORIENTED X4. DUE TO STROKE, HE CAN BE DIFFICULT TO UNDERSTAND. PATIENT IS HOPING THAT HE WILL DISCHARGED ON MONDAY. HE IS UNABLE TO TRANSITION FROM SITTING TO STANDING WITHOUT ASSISTANCE. HE DENIES PAIN WHEN ASKED. HE HAS A FEW SCABBED AREAS ON THE RIGHT SIDE OF HIS FACE AND NOSE. HE IS UNSURE WHAT HAPPENED, BUT HE HAD A SCAB ON HIS NOSE START BLEEDING. IT STOPPED QUICKLY. NO DRESSING NEEDED. PATIENT SEEMS TO TIRE QUICKLY AFTER THERAPY. HE HAS HAD SEVERAL VISITORS TODAY. PATIENT HAS BEEN PLEASENT AND COOPERATIVE WITH CARE AND DENIES PAIN WHEN ASKED. STAFF WILL CONT TO MONITOR.
--- NOTE | 2024-07-22 14:50 | NUR ---
Roscoe would like [facility]. He would like Henry Cruz as PT. Will send referral when it is time.
--- NOTE | 2024-07-22 19:05 | NUR ---
RECEIVED REPORT FROM DHRUV VUONG
[2024-07-22 19:46] VITALS: BP 109/58
--- NOTE | 2024-07-22 23:12 | NUR ---
PATIENT HAS BEEN UP TO TOILET WITH ONE ASSIST, WALKER AND GAIT BELT MULTIPLE TIMES THIS EVENING. REQUESTING APAP AND BENADRYL FOR SLEEP. DENIES PAIN OR DISCOMFORT. BED ALARM ON AND CALL LIGHT IN REACH
[2024-07-23 07:10] VITALS: BP 132/75
[2024-07-23 19:29] VITALS: BP 111/68
--- NOTE | 2024-07-23 19:57 | NUR ---
Report received from Dianna BARTLETT. Patient resting supine in bed watching TV. A/Ox4. Denies pain, SOA or cough. Reports no problems with B&B. Assessment completed. Heart remains irregular. No pedal edema. Denies questions, wants or needs at this time. Bed alarm on. Call light in reach.
--- NOTE | 2024-07-23 20:33 | NUR ---
Up to BR with assist of ACCOUNTS PAYABLE SUPERVISOR. Ambulates with 1:1 assist and walker. Gait steady. Scheduled HS medications taken. Tylenol PM on request. Refused PO HS Ensure.
--- NOTE | 2024-07-24 03:42 | NUR ---
Awake most of the night, up to BR several times. Appears anxious about appointment this AM. States "I just don't know what I would do if they put a cast on this leg". Requests pain pill for pain 07/02. Oxycodone taken at this time.
--- NOTE | 2024-07-24 06:56 | NUR ---
Report to Florentino BARTLETT.
[2024-07-24 07:00] VITALS: BP 140/67
[2024-07-24 07:03] LABS: BASO # 0.02 K/mm3 (0.02-0.10); EOS # 0.15 K/mm3 (0.04-0.40); EOS % 3.3 % (0.0-4.0); HEMATOCRIT 34.9 % (42.0-52.0); HEMOGLOBIN 11.9 g/dL (13.5-18.0); LYMPH# 0.86 K/mm3 (1.50-4.00); MEAN CELL VOLUME 96 fl (78-100); MEAN CORPUSCULAR HEMOGLOBIN 33 pg (27-31); MEAN CORPUSCULAR HGB CONC 34 g/dL (33-37); MEAN PLATELET VOLUME 10.2 fl (7.4-10.4); MONO # 0.47 K/mm3 (0.20-0.80); NEU # 3.09 K/mm3 (1.40-6.50); PLATELET COUNT 145 K/mm3 (130-400); RED BLOOD COUNT 3.64 M/mm3 (4.20-5.60); RED CELL DISTRIBUTION WIDTH 13.1 % (11.5-14.5); WHITE BLOOD COUNT 4.6 K/mm3 (4.8-10.8)
[2024-07-24 07:18] LABS: ALBUMIN 3.3 g/dL (3.4-4.8)
[2024-07-24 07:19] LABS: TOTAL PROTEIN 5.6 g/dL (6.2-8.1)
[2024-07-24 07:20] LABS: CALCIUM 8.9 mg/dL (8.3-10.5)
[2024-07-24 07:21] LABS: TOTAL BILIRUBIN 0.5 mg/dL (0.2-1.2)
--- NOTE | 2024-07-24 12:27 | NUR ---
1200 THIS NURSE AND POWERHOUSE TENDER ASSITED PT TO THE RESTROOM. PT DENIES ANY PAIN AT THIS TIME. HE REPORTS JUST FEELING TIRED.
--- NOTE | 2024-07-24 17:12 | NUR ---
PT RECIEVED MEAL TRAY, HE IS SITTING UP IN RECLINER AND WATCHING THE [employer] GAME ON TV. PT USED THE RESTROOM PRIOR TO GETTING INTO CHAIR.
--- NOTE | 2024-07-24 18:06 | NUR ---
PT HAD A VISITOR TODAY. PT SPENT MOST OF HIS TIME SITTING UP IN HIS RECLINER. HE WORKED WITH THERAPY USING A BREATHING JACK SPOOLER TENDER. PT ATE ICE CREAM AFTER LUNCH AND DRANK HIS ENSURE AFTER SUPPER.
[2024-07-24 19:26] VITALS: BP 113/75
--- NOTE | 2024-07-24 19:41 | NUR ---
Report received from Florentino BARTLETT. Patient rests supine in bed watching TV. A/O x4. Denies pain. Assessment completed. Refused PO supplement. Denies questions, wants or needs. Bed alarm on. Call light in reach.
--- NOTE | 2024-07-25 05:28 | NUR ---
Rested well through the night. Up to BR PRN with SBA and walker. AM medication taken. Bed alarm on. Call light in reach.
[2024-07-25 07:00] VITALS: BP 142/91
--- NOTE | 2024-07-25 07:14 | NUR ---
Report to Perla BARTLETT.
[2024-07-25 19:25] VITALS: BP 117/70
--- NOTE | 2024-07-25 19:53 | NUR ---
Report received from Perla BARTLETT. Patient rests supine in bed with eyes closed. No signs of pain/distress. Assessment completed. Bed alarm on, call light in reach. Patient to discharge home tomorrow.
--- NOTE | 2024-07-25 20:53 | NUR ---
HS medications taken whole. Request and given colace for bowels.
--- NOTE | 2024-07-26 06:07 | NUR ---
States he rested well this night. Up to BR PRN. Denies pain or needs. AM medication taken without difficulty. Bed alarm on. Call light in reach.
--- NOTE | 2024-07-26 07:06 | NUR ---
Report to Corinna BARTLETT
[2024-07-26 07:51] VITALS: BP 125/83
--- NOTE | 2024-07-26 09:26 | NUR ---
THIS RN TOOK PT FOR A WALK AROUND THE UNIT AND INTO THE ER AREA AND BACK. PT AMBULATED WELL WITH A STEADY GAIT.
[2024-07-26] MEDS ORDERED: CETIRIZINE HCL10 MG PO (09:33)
[2024-07-26] MEDS ORDERED: PROTONIX20 M1 PO (09:36)
[2024-07-26] MEDS ORDERED: MELATIN 3 MG-11 TAB PO (09:37)
--- NOTE | 2024-07-26 16:15 | NUR ---
PT DISCHARGED HOME WITH SON IN WHEELCHAIR. PT WAS ALERT AND ORIENTED WITH NO COMPLAINTS. D/C PAPERS ALL SIGNED AND MED LIST DISCUSSED WITH THE PT. ALL OF PTS BELONGINGS TAKEN OUT WITH HIM AND PLACED IN THE VEHICLE.
[2024-07-26] MEDS ORDERED: ELIQUIS5 MG PO (16:31)
== END 2024-07-26 16:17 | disposition home health service (06) | DRG 57 ==
LOC: MED/SURG 13:10
PROVIDERS: Family Medicine; ADMIT Family Medicine
DX: I69.354 Hemiplegia and hemiparesis following cerebral infarction affecting left non-dominant side (principal); I69.320 Aphasia following cerebral infarction; I10 Essential (primary) hypertension; I25.10 Atherosclerotic heart disease of native coronary artery without angina pectoris; I08.1 Rheumatic disorders of both mitral and tricuspid valves; M19.90 Unspecified osteoarthritis, unspecified site; E78.5 Hyperlipidemia, unspecified; H26.9 Unspecified cataract; Z66 Do not resuscitate; Z95.2 Presence of prosthetic heart valve; Z88.0 Allergy status to penicillin; Z88.5 Allergy status to narcotic agent; I48.91 Unspecified atrial fibrillation

== ENCOUNTER 2024-08-19 16:20 | Emergency (ER) | payer MEDICARE ==
[~2024-08-19] VITALS: Wt 93.7 kg
[~2024-08-19 16:20] MED LIST changes: +ACETAMINOPHEN325 M1 PO; +ATORVASTATIN CA40 MG PO; +CETIRIZINE HCL10 MG PO; +CLOPIDOGREL PO; +ELIQUIS5 MG PO; +ISOSORBIDE MONO60 M2 PO; +MELATIN 3 MG-11 TAB PO; +NITROGLYCERIN0.4 M1 SL; +PROTONIX20 M1 PO; +TOPROL XL 25MG25 MG PO; +TYLENOL PM EXTR1 TA1 PO; +[UNRECOGNIZED DRUG - OTHER] PO
[2024-08-19 16:57] LABS: BASO # 0.03 K/mm3 (0.02-0.10); EOS # 0.18 K/mm3 (0.04-0.40); EOS % 3.1 % (0.0-4.0); HEMATOCRIT 37.3 % (42.0-52.0); HEMOGLOBIN 12.2 g/dL (13.5-18.0); LYMPH# 0.85 K/mm3 (1.50-4.00); MEAN CELL VOLUME 93 fl (78-100); MEAN CORPUSCULAR HEMOGLOBIN 31 pg (27-31); MEAN CORPUSCULAR HGB CONC 33 g/dL (33-37); MEAN PLATELET VOLUME 10.4 fl (7.4-10.4); MONO # 0.63 K/mm3 (0.20-0.80); NEU # 4.12 K/mm3 (1.40-6.50); PLATELET COUNT 207 K/mm3 (130-400); RED CELL DISTRIBUTION WIDTH 13.2 % (11.5-14.5); WHITE BLOOD COUNT 5.8 K/mm3 (4.8-10.8)
[2024-08-19 17:01] LABS: SODIUM 141 mmol/L (136-145)
[2024-08-19 17:02] LABS: CALCIUM 9.5 mg/dL (8.3-10.5)
[2024-08-19 17:03] LABS: GLUCOSE 104 mg/dL (75-110)
[2024-08-19 17:04] LABS: TOTAL PROTEIN 6.6 g/dL (6.2-8.1)
[2024-08-19 17:05] LABS: CARBON DIOXIDE 20 mmol/L (23-31); TOTAL BILIRUBIN 1.4 mg/dL (0.2-1.2)
[2024-08-19 17:09] LABS: AST-SGOT 21 U/L (5-34)
[2024-08-19 17:10] LABS: ALT/SGPT 19 U/L (0-55)
[2024-08-19 17:16] LABS: TROPONIN-I < 0.030 ng/mL (0.00-0.033)
[2024-08-19 19:36] VITALS: BP 101/63
== END 2024-08-19 19:55 | disposition short-term general hospital (02) ==
LOC: ED 16:20
PROVIDERS: Physician Assistant
DX: R06.89 Other abnormalities of breathing (principal); I50.9 Heart failure, unspecified; Z79.01 Long term (current) use of anticoagulants; Z79.02 Long term (current) use of antithrombotics/antiplatelets